=== PATIENT | male | born 1950 | race Caucasian/White ===

== ENCOUNTER → 2016-12-24 | Outpatient (CLI) | payer MEDICARE, OTHER | LOC: LABWHC1 10:00 | PROVIDERS: ATTEND Family Medicine | DX: Z53.9 Procedure and treatment not carried out, unspecified reason (principal) ==

== ENCOUNTER → 2017-01-12 | Outpatient (CLI) | payer MEDICARE, OTHER ==
--- NOTE | 2017-01-12 11:41 | US ---
EXAMINATION TYPE: US venous doppler duplex LE DATE OF EXAM: 01/12/2017 9:11 AM COMPARISON: NONE CLINICAL HISTORY: M79.604 Pain in R Leg. Ulcer bottom of right foot x 1 month LOWER EXTREMITY VENOUS INSUFFICIENCY SIDE PERFORMED: bilateral 1) Color flow is present and patency is documented in the following vessels. No DVT or SVT is noted . ? EIV ? Common Femoral Vein ? Deep Femoral Vein ? Femoral Vein ? Popliteal Vein ? Proximal Calf Veins ? Greater Saph Vein ? Upper Small Saph Vein 2) There is venous reflux noted at the following venous levels: bilateral greater saph. vein, right small saph. vein, left popliteal vein mid IMPRESSION: 1. Venous reflux within the greater saphenous veins bilaterally the right small saphenous vein and le ft popliteal vein.
--- NOTE | 2017-01-13 14:35 | P.ARTDOP ---
Arterial Doppler LOWER EXTREMITY ARTERIAL DOPPLER: DATE OF SERVICE: 01/12/2017 Reason for study: Leg pain. Doppler waveforms: Multiphasic bilaterally throughout. Pulse volume recording: Normal configuration. Pressure gradients: None. Ankle-brachial indices: Cannot be occluded. Toe pressures: 133 on the right, 131 on the left Impression: Normal study flow-belle. Inability to occlude ankle pressures may be related to calcific wall disease but not flow related..
== END | disposition home or self-care (01) ==
LOC: RADUSWWP 08:31
PROVIDERS: ATTEND Family Medicine
DX: I87.8 Other specified disorders of veins (principal); M79.604 Pain in right leg
CPT/HCPCS: 93923; 93970

== ENCOUNTER → 2017-01-12 | Outpatient (CLI) | payer MEDICARE, OTHER ==
--- NOTE | 2017-01-12 09:56 | MR ---
EXAMINATION TYPE: MR foot RT wo/w con DATE OF EXAM: 01/12/2017 8:27 AM COMPARISON: Right foot x-ray December 24, 2016. Prior MRI right foot August 25, 2011. HISTORY: assess osteomyelitis, history of diabetes with foot ulcer. CONTRAST: Standard multiplanar, multisequence MRI departmental protocol utilizing 20 mL intravenous MultiHance gadolinium contrast. FINDINGS: Exam is suboptimal secondary to patient's foot size being 2 large for dedicated foot coil. In addition exam is suboptimal due to patient motion. Exam is also suboptimal as dedicated level of u lcer or ulcers is not provided. There is moderate diffuse subcutaneous edema and soft tissue swelling identified most pronounced justus g the dorsal surface. Marked flexion in the toes makes evaluation at this level suboptimal. No obviou s soft tissue defect or ulceration is seen along the plantar surface. Bone marrow signal intensity is fairly well preserved without suspicious edema or enhancement clearly identified. Midfoot degenerative changes with joint space loss and subchondral cystic change and spurring is rede monstrated. Some destructive changes consistent with Charcot-type arthropathy involving the cuneiform s and midfoot bones is present. IMPRESSION: Suboptimal study without convincing evidence for acute osteomyelitis. If clinical concern persists fu rther investigation three-phase bone scan may be warranted due to quality of this study.
== END | disposition home or self-care (01) ==
LOC: RADMRIMAIN 06:32
PROVIDERS: ATTEND Family Medicine
DX: M86.8X8 Other osteomyelitis, other site (principal); E13.621 Other specified diabetes mellitus with foot ulcer
CPT/HCPCS: 82565; 84520; 73720; A9577; 93923; 93970

== ENCOUNTER → 2019-10-24 | Outpatient (CLI) | payer MEDICARE, OTHER ==
--- NOTE | 2019-10-24 10:46 | CT ---
EXAMINATION TYPE: CT brain wo con DATE OF EXAM: 10/24/2019 COMPARISON: None HISTORY: Fall CT DLP: 1120.[address] of the brain was performed. The ventricles, basal cisterns and sulci overlying the cerebral convexities demonstrate mild enlargem ent. There is no evidence for intracranial hemorrhage or sulcal effacement. There is decreased attenuation about the periventricular white matter and deep white matter of both c erebral hemispheres, compatible with chronic small vessel ischemia. Differential diagnosis does inclu de demyelination. No mass effects are seen.No midline shift. Osseous calvarium is intact. If symptoms persist consider MRI. IMPRESSION: 1. Age related atrophic and chronic small vessel ischemic change without acute intracranial process s een at this time.
== END | disposition home or self-care (01) ==
LOC: RADCTMAIN 10:21
PROVIDERS: ATTEND Family Medicine
DX: G31.1 Senile degeneration of brain, not elsewhere classified (principal); I67.82 Cerebral ischemia; Z88.5 Allergy status to narcotic agent
CPT/HCPCS: 70450

== ENCOUNTER → 2019-10-25 | Outpatient (CLI) | payer MEDICARE, OTHER ==
[2019-10-25 07:54] LABS: Basophils % (A) 0 %; Eosinophils # (A) 0.2 k/uL (0-0.7); Eosinophils % (A) 2 %; HCT 48.7 % (39.0-53.0); HGB 15.3 gm/dL (13.0-17.5); Lymphocytes # (A) 1.7 k/uL (1.0-4.8); Lymphocytes % (A) 20 %; MCH 29.2 pg (25.0-35.0); MCHC 31.5 g/dL (31.0-37.0); MCV 92.5 fL (80.0-100.0); Mean Platelet Volume 8.9; Monocytes # (A) 0.4 k/uL (0-1.0); Monocytes % (A) 5 %; Neutrophils # (A) 6.1 k/uL (1.3-7.7); Neutrophils % (A) 72 %; Platelet Count 145 k/uL (150-450); RBC 5.26 m/uL (4.30-5.90); RDW 13.7 % (11.5-15.5); WBC 8.5 k/uL (3.8-10.6)
[2019-10-25 12:09] LABS: African American GFR (CKD) 50.6 (60.0-200.0); Anion Gap 8.6 mmol/L (4.00-12.00); BUN/Creat Ratio 18.75 Ratio (12.00-20.00); Calcium 9.2 mg/dL (8.7-10.3); Carbon Dioxide 26.4 mmol/L (21.6-31.8); Chol/HDL Ratio 3.71; LDL Cholesterol,Calculated 77.8 mg/dL (0.0-131.0); Non-African American GFR(CKD) 43.6 (60.0-200.0); VLDL Calculation 25.2 mg/dL (5.00-40.00)
== END | disposition home or self-care (01) ==
LOC: LABWHC1 06:37
PROVIDERS: ATTEND Family Medicine
DX: Z12.5 Encounter for screening for malignant neoplasm of prostate (principal); E11.42 Type 2 diabetes mellitus with diabetic polyneuropathy; I10 Essential (primary) hypertension; R41.82 Altered mental status, unspecified; Z79.899 Other long term (current) drug therapy
CPT/HCPCS: 36415; 80048; 80061; 84153; 84450; 84460; 85025

== ENCOUNTER 2020-11-26 11:46 | Inpatient (IN) | payer MEDICARE, OTHER ==
[2020-11-26] MEDS ORDERED: ACETAMINOPHEN TAB 500 MG TAB PO STA (12:13)
[2020-11-26] MEDS ORDERED: SODIUM CHLORIDE 0.9% 1,000 ML IV STA (12:13)
[2020-11-26 12:43] LABS: Basophils % (A) 0 %; Eosinophils # (A) 0.2 k/uL (0-0.7); Eosinophils % (A) 1 %; HCT 48.6 % (39.0-53.0); HGB 16.4 gm/dL (13.0-17.5); Lymphocytes # (A) 0.8 k/uL (1.0-4.8); Lymphocytes % (A) 6 %; MCH 30.2 pg (25.0-35.0); MCHC 33.7 g/dL (31.0-37.0); MCV 89.5 fL (80.0-100.0); Mean Platelet Volume 9.1; Monocytes # (A) 0.4 k/uL (0-1.0); Monocytes % (A) 3 %; Neutrophils % (A) 90 %; Platelet Count 140 k/uL (150-450); RBC 5.43 m/uL (4.30-5.90); RDW 13.4 % (11.5-15.5); WBC 14.5 k/uL (3.8-10.6)
[2020-11-26 12:54] LABS: ALT 25 U/L (4-49); African American GFR (CKD) 49 (>60 ml/min/1.73 sqM); Albumin 4.2 g/dL (3.5-5.0); Anion Gap 11 mmol/L; Blood Urea Nitrogen 30 mg/dL (9-20); Calcium 9.4 mg/dL (8.4-10.2); Carbon Dioxide 22 mmol/L (22-30); Chloride 102 mmol/L (98-107); Glucose 133 mg/dL (74-99); Lipase 59 U/L (23-300); Non-African American GFR(CKD) 42 (>60 ml/min/1.73 sqM); Sodium 135 mmol/L (137-145); Total Protein 7.5 g/dL (6.3-8.2)
[2020-11-26 12:57] LABS: Appearance,Urine Clear (Clear); Bilirubin,Urine Negative (Negative); Blood,Urine Trace (Negative); Color,Urine Yellow; Glucose,Urine (UA) Negative (Negative); Ketones,Urine Negative (Negative); Leukocyte Esterase,Urine Negative (Negative); Nitrite,Urine Negative (Negative); PH, Urine 5.5 (5.0-8.0); Protein,Urine 1+ (Negative); RBC,Urine 1 /hpf (0-5); Specific Gravity,Urine 1.015 (1.001-1.035); Urobilinogen,Urine <2.0 mg/dL (<2.0); WBC,Urine 1 /hpf (0-5)
[2020-11-26 13:00] LABS: AST 33 U/L (17-59); Alkaline Phosphatase 122 U/L (38-126); Magnesium 1.6 mg/dL (1.6-2.3); Potassium 4.8 mmol/L (3.5-5.1)
--- NOTE | 2020-11-26 13:19 | XR ---
EXAMINATION TYPE: XR chest 2V DATE OF EXAM: 11/26/2020 COMPARISON: NONE HISTORY: Fever, hyperglycemia, Covid TECHNIQUE: Frontal and lateral views of the chest are obtained. FINDINGS: Exam shows low lung volume. Patchy basilar density is noted. No evident pneumothorax or pl eural effusion. Cardiac mediastinal silhouette within normal limits accounting for technique, there a re overlying leads. Thoracic spondylosis is present. IMPRESSION: Expiratory exam. Probable basilar atelectasis, difficult to exclude pneumonia. Follow-up suggested.
[2020-11-26] MEDS ORDERED: SODIUM CHLORIDE 0.9% 1,000 ML IV ONE (13:29)
--- NOTE | 2020-11-26 13:32 | ED ---
Fever HPI - General Chief Complaint: Fever Stated Complaint: High Blood sugar Time Seen by Provider: 11/26/20 11:56 Source: patient, RN notes reviewed, Caregiver Mode of arrival: wheelchair Limitations: physical limitation - History of Present Illness Initial Comments: this is a 70-year-old male presents emergency department with family chief complaint of fever, episode of vomiting, weakness. Patient reportedly was well yesterday but started having coughing fit, near vomiting episode with decreased oral intake this morning. Patient is a known diabetic. Patient did have mild hyperglycemia. Patient patient's blood sugar was 191 at home. Patient has been being treated for her diabetic foot ulcer which is well-healed over. No complaints. - Related Data Home Medications Medication Instructions Recorded Confirmed lisinopriL [Prinivil] 20 mg PO DAILY 03/08/14 11/26/20 Aspirin 81 mg PO DAILY 03/23/14 11/26/20 Insulin Glargine,Hum.rec.anlog 60 unit SQ W/SUPPER 03/23/14 11/26/20 [Lantus Solostar] Simvastatin [Zocor] 40 mg PO DAILY 11/26/20 11/26/20 Allergies Allergy/AdvReac Type Severity Reaction Status Date / Time codeine Allergy Unknown Swelling Verified 11/26/20 13:18 methylprednisolone sodium Allergy Unknown Swelling Verified 11/26/20 13:18 succinate [From Solu-Medrol] Review of Systems ROS Statement: Those systems with pertinent positive or pertinent negative responses have been documented in the HPI. ROS Other: All systems not noted in ROS Statement are negative. Past Medical History Past Medical History: Diabetes Mellitus, Hyperlipidemia, Hypertension, Skin Disorder Additional Past Medical History / Comment(s): wound right plantar foot History of Any Multi-Drug Resistant Organisms: None Reported Past Surgical History: Tonsillectomy Additional Past Surgical History / Comment(s): FOOT SURGERY-Bilateral Past Anesthesia/Blood Transfusion Reactions: No Reported Reaction Past Psychological History: No Psychological Hx Reported Smoking Status: Former smoker Past Alcohol Use History: Rare Past Drug Use History: None Reported - Past Family History Father Family Medical History: Cancer Additional Family Medical History / Comment(s): COLON CANCER Mother Family Medical History: Dementia, Diabetes Mellitus General Exam Limitations: physical limitation General appearance: alert, in no apparent distress Head exam: Present: atraumatic, normocephalic, normal inspection Eye exam: Present: normal appearance, PERRL, EOMI. Absent: scleral icterus, conjunctival injection, periorbital swelling ENT exam: Present: normal exam, normal oropharynx, mucous membranes moist, TM's normal bilaterally Neck exam: Present: normal inspection, full ROM. Absent: tenderness, meningismus, lymphadenopathy Respiratory exam: Present: rhonchi. Absent: normal lung sounds bilaterally, respiratory distress, wheezes, rales, stridor Cardiovascular Exam: Present: normal rhythm, tachycardia, normal heart sounds. Absent: systolic murmur, diastolic murmur, rubs, gallop, clicks GI/Abdominal exam: Present: soft, normal bowel sounds. Absent: distended, tenderness, guarding, rebound, rigid Extremities exam: Present: other (left foot plantar surface there is a well- healed) Neurological exam: Present: alert, oriented X3 ( wound. No erythema nontender) Skin exam: Present: warm, dry, intact, normal color. Absent: rash Course Vital Signs 11/26/20 11/26/20 11/26/20 11:47 12:42 13:16 Temperature 101 F H 100.8 F H Pulse Rate 137 H 133 H 124 H Pulse Rate [ Clinical Rehab Specialist ] Respiratory 20 20 20 Rate Blood Pressure 139/85 111/68 127/74 O2 Sat by Pulse 95 93 L 94 L Oximetry 11/26/20 13:19 Temperature Pulse Rate Pulse Rate [ 124 H Clinical Rehab Specialist ] Respiratory 20 Rate Blood Pressure O2 Sat by Pulse Oximetry Medical Decision Making - Medical Decision Making patient'sideal body weight is 78 kg. Patient does have evidence of pneumonia on x-ray. Patient is febrile, tachycardic. Patient will be admitted for IV antibi otics, fluid hydration and further monitoring treatment. - Lab Data Result diagrams: 11/26/20 12:17 11/26/20 12:17 Lab Results 11/26/20 11/26/20 11/26/20 Range/Units 12:17 12:17 12:17 WBC 14.5 H (3.8-10.6) k/uL RBC 5.43 (4.30-5.90) m/uL Hgb 16.4 (13.0-17.5) gm/dL Hct 48.6 (39.0-53.0) % MCV 89.5 (80.0-100.0) fL MCH 30.2 (25.0-35.0) pg MCHC 33.7 (31.0-37.0) g/dL RDW 13.4 (11.5-15.5) % Plt Count 140 L (150-450) k/uL MPV 9.1 Neutrophils % 90 % Lymphocytes % 6 % Monocytes % 3 % Eosinophils % 1 % Basophils % 0 % Neutrophils # 13.0 H (1.3-7.7) k/uL Lymphocytes # 0.8 L (1.0-4.8) k/uL Monocytes # 0.4 (0-1.0) k/uL Eosinophils # 0.2 (0-0.7) k/uL Basophils # 0.0 (0-0.2) k/uL Sodium 135 L (137-145) mmol/L Potassium 4.8 (3.5-5.1) mmol/L Chloride 102 (98-107) mmol/L Carbon Dioxide 22 (22-30) mmol/L Anion Gap 11 mmol/L BUN 30 H (9-20) mg/dL Creatinine 1.63 H (0.66-1.25) mg/dL Est GFR (CKD-EPI)AfAm 49 (>60 ml/min/1.73 sqM) Est GFR (CKD-EPI)NonAf 42 (>60 ml/min/1.73 sqM) Glucose 133 H (74-99) mg/dL Plasma Lactic Acid Prudencio 1.9 (0.7-2.0) mmol/L Calcium 9.4 (8.4-10.2) mg/dL Magnesium 1.6 (1.6-2.3) mg/dL Total Bilirubin 1.0 (0.2-1.3) mg/dL AST 33 (17-59) U/L ALT 25 (4-49) U/L Alkaline Phosphatase 122 (38-126) U/L Troponin I (0.000-0.034) ng/mL Total Protein 7.5 (6.3-8.2) g/dL Albumin 4.2 (3.5-5.0) g/dL Lipase 59 (23-300) U/L Urine Color Urine Appearance (Clear) Urine pH (5.0-8.0) Ur Specific Bland (1.001-1.035) Urine Protein (Negative) Urine Glucose (UA) (Negative) Urine Ketones (Negative) Urine Blood (Negative) Urine Nitrite (Negative) Urine Bilirubin (Negative) Urine Urobilinogen (<2.0) mg/dL Ur Leukocyte Esterase (Negative) Urine RBC (0-5) /hpf Urine WBC (0-5) /hpf Acetone, Qual Negative (Negative) Coronavirus (PCR) (Not Detectd) 11/26/20 11/26/20 11/26/20 Range/Units 12:17 12:17 12:17 WBC (3.8-10.6) k/uL RBC (4.30-5.90) m/uL Hgb (13.0-17.5) gm/dL Hct (39.0-53.0) % MCV (80.0-100.0) fL MCH (25.0-35.0) pg MCHC (31.0-37.0) g/dL RDW (11.5-15.5) % Plt Count (150-450) k/uL MPV Neutrophils % % Lymphocytes % % Monocytes % % Eosinophils % % Basophils % % Neutrophils # (1.3-7.7) k/uL Lymphocytes # (1.0-4.8) k/uL Monocytes # (0-1.0) k/uL Eosinophils # (0-0.7) k/uL Basophils # (0-0.2) k/uL Sodium (137-145) mmol/L Potassium (3.5-5.1) mmol/L Chloride (98-107) mmol/L Carbon Dioxide (22-30) mmol/L Anion Gap mmol/L BUN (9-20) mg/dL Creatinine (0.66-1.25) mg/dL Est GFR (CKD-EPI)AfAm (>60 ml/min/1.73 sqM) Est GFR (CKD-EPI)NonAf (>60 ml/min/1.73 sqM) Glucose (74-99) mg/dL Plasma Lactic Acid Prudencio (0.7-2.0) mmol/L Calcium (8.4-10.2) mg/dL Magnesium (1.6-2.3) mg/dL Total Bilirubin (0.2-1.3) mg/dL AST (17-59) U/L ALT (4-49) U/L Alkaline Phosphatase (38-126) U/L Troponin I <0.012 (0.000-0.034) ng/mL Total Protein (6.3-8.2) g/dL Albumin (3.5-5.0) g/dL Lipase (23-300) U/L Urine Color Yellow Urine Appearance Clear (Clear) Urine pH 5.5 (5.0-8.0) Ur Specific Bland 1.015 (1.001-1.035) Urine Protein 1+ H (Negative) Urine Glucose (UA) Negative (Negative) Urine Ketones Negative (Negative) Urine Blood Trace H (Negative) Urine Nitrite Negative (Negative) Urine Bilirubin Negative (Negative) Urine Urobilinogen <2.0 (<2.0) mg/dL Ur Leukocyte Esterase Negative (Negative) Urine RBC 1 (0-5) /hpf Urine WBC 1 (0-5) /hpf Acetone, Qual (Negative) Coronavirus (PCR) Not Detected (Not Detectd) - EKG Data -: EKG Interpreted by Ks EKG Comments: EKG performed at 12:14 sinus tachycardia rate of 134 UT 200 QRS 118 QT/QTc to 88/4:30 Disposition Clinical Impression: Pneumonia, Fever, Tachycardia Disposition: ADMITTED IP TO THIS HOSP Condition: Fair Referrals: Josef Hawkins Jr, [Primary Care Provider] - 1-2 days
[2020-11-26] MEDS ORDERED: AZITHROMYCIN 500 MG in SODIUM CHLORIDE 0.9% 250 ML IVPB STA (13:44)
[2020-11-26] MEDS ORDERED: ACETAMINOPHEN TAB 325 MG TAB PO PRN (13:45)
[2020-11-26] MEDS ORDERED: ONDANSETRON 4 MG/2 ML VIAL IVP PRN (13:45)
[2020-11-26] MEDS ORDERED: NALOXONE 0.4 MG/ML 1 ML VIAL IV PRN (13:45)
[2020-11-26] MEDS: SODIUM CHLORIDE 0.9% 1,000 ML IV SCH ×2 (13:54→21:52)
[2020-11-26 21:26] LABS: Glucose,Whole Blood 161 mg/dL (75-99)
[2020-11-26] MEDS: INSULIN ASPART (NovoLOG) 100 UNIT/ML VIAL SQ SCH (21:51)
[2020-11-27] MEDS: SODIUM CHLORIDE 0.9% 1,000 ML IV SCH ×3 (01:27→21:34)
[2020-11-27 07:14] LABS: Glucose,Whole Blood 181 mg/dL (75-99)
[2020-11-27] MEDS: INSULIN ASPART (NovoLOG) 100 UNIT/ML VIAL SQ SCH ×4 (07:44→22:17)
[2020-11-27 11:23] LABS: Glucose,Whole Blood 195 mg/dL (75-99)
--- NOTE | 2020-11-27 13:16 | P.HPIM ---
History of Present Illness H&P Date: 11/27/20 Chief Complaint: Fever, high blood sugars This is 70-year-old gentleman with past medical history of diabetes mellitus II, neuropathy , bilateral foot/toe debridements,Charcot feet,hyperlipidemia, hypertension, former nicotine dependence, presented to the ER with complaints of nausea, vomiting, generalized weakness, fevers and high blood sugars-reports Accu-Chek at home of 191. Denies abdominal pain. Recently treated for diabetic foot ulcer-healed. Denies chest pain, palpitations or shortness of breath. Chest x-ray reported patchy basilar density ,probable basilar atelectasis, difficult to exclude pneumonia. Patient currently denies cough nausea or vomiting currently with no abdominal pain. On admission and T-max, temperature 101, respiratory rate in the 20s, blood pressure stable, maintaining O2 sats in the 90s on room air. Blood sugar 133 on admission. Creatinine 1.63 at baseline. BUN 30. Negative acetone.EKG reporting sinus tachycardia with right bundle branch block, heart rate 120s 130s. Received IV fluid hydration with IV antibiotics of azithromycin and Rocephin initiated in the ER. Patient is vague historian, majority of information obtained from staff and chart. Review of Systems ROS Statement: Those systems with pertinent positive or pertinent negative responses have been documented in the HPI. ROS Other: All systems not noted in ROS Statement are negative. Past Medical History Past Medical History: Diabetes Mellitus, Hyperlipidemia, Hypertension, Skin Disorder Additional Past Medical History / Comment(s): IDDM type II, neuropathy bilateral hands/feet, bilateral charcot feet/past bilateral foot/toe wounds History of Any Multi-Drug Resistant Organisms: None Reported Past Surgical History: Tonsillectomy Additional Past Surgical History / Comment(s): PICC line, bilateral foot/toe debridements Past Anesthesia/Blood Transfusion Reactions: No Reported Reaction Smoking Status: Former smoker - Past Family History Father Family Medical History: Cancer Additional Family Medical History / Comment(s): COLON CANCER Mother Family Medical History: Dementia, Diabetes Mellitus Medications and Allergies Home Medications Medication Instructions Recorded Confirmed Type lisinopriL [Prinivil] 20 mg PO DAILY 03/08/14 11/26/20 History Aspirin 81 mg PO DAILY 03/23/14 11/26/20 History Insulin Glargine,Hum.rec.anlog 60 unit SQ W/SUPPER 03/23/14 11/26/20 History [Lantus Solostar] Simvastatin [Zocor] 40 mg PO DAILY 11/26/20 11/26/20 History Allergies Allergy/AdvReac Type Severity Reaction Status Date / Time codeine Allergy Unknown Swelling Verified 11/26/20 13:18 methylprednisolone sodium Allergy Unknown Swelling Verified 11/26/20 13:18 succinate [From Solu-Medrol] Physical Exam Vitals: Vital Signs Temp Pulse Pulse Pulse Resp BP BP 11/27/20 02:40 98.8 F 99 20 149/68 11/26/20 20:45 99.4 F 117 H 20 134/81 11/26/20 19:20 19 11/26/20 16:03 100.1 F H 121 H 19 114/73 11/26/20 15:33 100.1 F H 134 H 18 149/90 11/26/20 14:33 134 H 18 149/90 11/26/20 13:57 100.1 F H 125 H 20 141/85 11/26/20 13:19 124 H 20 11/26/20 13:16 100.8 F H 124 H 20 127/74 11/26/20 12:42 133 H 20 111/68 11/26/20 11:47 101 F H 137 H 20 139/85 Pulse Ox 11/27/20 02:40 93 L 11/26/20 20:45 94 L 11/26/20 19:20 11/26/20 16:03 93 L 11/26/20 15:33 94 L 11/26/20 14:33 94 L 11/26/20 13:57 94 L 11/26/20 13:19 11/26/20 13:16 94 L 11/26/20 12:42 93 L 11/26/20 11:47 95 Intake and Output 11/26/20 11/27/20 11/27/20 22:59 06:59 14:59 Intake Total 200 Balance 200 Intake: Oral 200 Other: Voiding Method Urinal # Voids 0 3 Weight 136.078 kg PHYSICAL EXAM: VITAL SIGNS: As above GENERAL: Sitting up in bed, no acute distress, calm, pleasant HEENT: Conjunctivae normal. eyes normal. NECK: No JVD. No thyroid enlargement. No LNs CARDIOVASCULAR: S1, S2 regular.. No murmur RESPIRATION: Breath sounds diminished in the bases. No rhonchi, minimal coarse bibasilar crackles. ABDOMEN: Soft, nontender . No guarding. no masses palpable. No ascites, No hepatosplenomegaly.Bowel sounds heard. LEGS: Right lower extremity bigger than left, nontender, warm, positive pulses. bilateral Charcot feet,Left foot plantar surface well healed, PSYCHIATRY: Alert and oriented X2-3, mood and affect normal. NERVOUS SYSTEM: Cranial N 2-12 grossly normal. Moves all 4 limbs. Diffuse weakness No focal deficits. Strength and sensation grossly intact.. Skin: Warm and dry, no rash Lymphatic system. No LN neck axilla. Results CBC & Chem 7: 11/26/20 12:17 11/26/20 12:17 Labs: Abnormal Lab Results - Last 24 Hours (Table) 11/26/20 11/26/20 11/26/20 Range/Units 12:17 12:17 12:17 WBC 14.5 H (3.8-10.6) k/uL Plt Count 140 L (150-450) k/uL Neutrophils # 13.0 H (1.3-7.7) k/uL Lymphocytes # 0.8 L (1.0-4.8) k/uL Sodium 135 L (137-145) mmol/L BUN 30 H (9-20) mg/dL Creatinine 1.63 H (0.66-1.25) mg/dL Glucose 133 H (74-99) mg/dL POC Glucose (mg/dL) (75-99) mg/dL Urine Protein 1+ H (Negative) Urine Blood Trace H (Negative) 11/26/20 11/27/20 Range/Units 21:09 07:13 WBC (3.8-10.6) k/uL Plt Count (150-450) k/uL Neutrophils # (1.3-7.7) k/uL Lymphocytes # (1.0-4.8) k/uL Sodium (137-145) mmol/L BUN (9-20) mg/dL Creatinine (0.66-1.25) mg/dL Glucose (74-99) mg/dL POC Glucose (mg/dL) 161 H 181 H (75-99) mg/dL Urine Protein (Negative) Urine Blood (Negative) Thrombosis Risk Factor Assmnt - Choose All That Apply Any of the Below Risk Factors Present?: Yes Each Factor Represents 1 point: Obesity (BMI >25), Serious lung disease incl. pneumonia (< 1month) Other Risk Factors: Yes Each Risk Factor Represents 2 Points: Age 61-74 years Other congenital or acquired thrombophilia - If yes, enter type in comment: No Thrombosis Risk Factor Assessment Total Risk Factor Score: 4 Thrombosis Risk Factor Assessment Level: Moderate Risk Assessment and Plan Assessment: Fevers, possible community-acquired bilateral Pneumonia Bibasilar atelectasis Rule out influenza Sinus tachycardia, right bundle-branch block Diabetes mellitus type 2, hyperglycemi Neuropathy Charcot feet History of previous bilateral foot, toe debridement Hypertension Hyperlipidemia Former nicotine dependence Morbid obesity, BMI 41.8 Plan: Continue on current medication regime ,monitoring and systemic treatment. Blood cultures pending. Maintain IV fluid hydration, antibiotics. Doppler ultrasound of right leg, rule out DVT. Discharge planning in progress for kareem orrow if patient is afebrile 24 hours. Influenza screen ordered. The impression and plan of care has been dictated as directed. : I performed a history and examination of this patient, discussed the same with the dictator. I agree with the dictator's note ,documented as a scribe. Any a dditional findings or plans will be noted.
--- NOTE | 2020-11-27 14:46 | US ---
EXAMINATION TYPE: US venous doppler duplex LE RT DATE OF EXAM: 11/27/2020 2:36 PM COMPARISON: NONE CLINICAL HISTORY: R/O DVT. Right leg swelling Exam done portable. SIDE PERFORMED: Right TECHNIQUE: The lower extremity deep venous system is examined utilizing real time linear array sonog winsome with graded compression, doppler sonography and color-flow sonography. VESSELS IMAGED: Common Femoral Vein Deep Femoral Vein Greater Saphenous Vein * Femoral Vein Popliteal Vein Small Saphenous Vein * Proximal Calf Veins (* superficial vessels) There is normal flow, compressibility, vascular waveforms Right Leg: Appears negative for DVT IMPRESSION: No evident deep venous thrombosis at or above the right knee
[2020-11-27 16:34] LABS: Glucose,Whole Blood 271 mg/dL (75-99)
[2020-11-27 19:24] LABS: Hemoglobin A1C 8.5 % (4.0-6.0)
[2020-11-27 22:12] LABS: Glucose,Whole Blood 165 mg/dL (75-99)
[2020-11-28] MEDS: SODIUM CHLORIDE 0.9% 1,000 ML IV SCH ×3 (04:19→12:42)
[2020-11-28 07:20] LABS: Glucose,Whole Blood 148 mg/dL (75-99)
[2020-11-28] MEDS: INSULIN ASPART (NovoLOG) 100 UNIT/ML VIAL SQ SCH ×4 (07:32→20:27)
[2020-11-28] MEDS ORDERED: PANTOPRAZOLE 40 MG/10 ML VIAL IVP SCH (10:15)
[2020-11-28] MEDS ORDERED: AZITHROMYCIN 500 MG in SODIUM CHLORIDE 0.9% 250 ML IVPB SCH (10:15)
[2020-11-28 11:01] LABS: Basophils # (A) 0.01 X 10*3/uL (0.00-0.10); Basophils % (A) 0.1 %; Eosinophils # (A) 0.16 X 10*3/uL (0.04-0.35); Eosinophils % (A) 2.3 %; HCT 40.2 % (39.6-50.0); HGB 13.1 g/dL (13.0-17.0); Lymphocytes # (A) 0.91 X 10*3/uL (0.90-5.00); Lymphocytes % (A) 12.8 %; MCH 29.8 pg (27.0-32.0); MCHC 32.6 g/dL (32.0-37.0); MCV 91.6 fL (80.0-97.0); Mean Platelet Volume 12.3 fL (9.5-12.2); Monocytes # (A) 0.44 X 10*3/uL (0.20-1.00); Monocytes % (A) 6.2 %; Neutrophils # (A) 5.56 X 10*3/uL (1.80-7.70); Neutrophils % (A) 78.2 %; Platelet Count 115 X 10*3/uL (140-440); RBC 4.39 X 10*6/uL (4.40-5.60); RDW 13.3 % (11.5-14.5); WBC 7.11 X 10*3/uL (4.50-10.00)
--- NOTE | 2020-11-28 11:39 | XR ---
EXAMINATION TYPE: XR chest 2V DATE OF EXAM: 11/28/2020 COMPARISON: Chest x-ray 11/26/2020 HISTORY: Follow-up, abnormal chest x-ray TECHNIQUE: Frontal and lateral views of the chest are obtained. FINDINGS: Exam is expiratory and rotated. Pleural parenchymal changes are similar to prior exam. Car diac mediastinal silhouette is not changed. IMPRESSION: Stable findings. There may be underlying atelectasis versus pneumonia, expiratory rotate d exam, recommend follow-up PA and lateral chest x-ray for better evaluation when stable.
[2020-11-28 12:02] LABS: Glucose,Whole Blood 177 mg/dL (75-99)
[2020-11-28 12:18] LABS: African American GFR (CKD) 50.2 (60.0-200.0); Anion Gap 6.5 mmol/L (4.00-12.00); BUN/Creat Ratio 18.13 Ratio (12.00-20.00); Calcium 8.1 mg/dL (8.7-10.3); Carbon Dioxide 23.5 mmol/L (21.6-31.8); Non-African American GFR(CKD) 43.3 (60.0-200.0); Potassium 4.3 mmol/L (3.5-5.5)
--- NOTE | 2020-11-28 12:31 | P.PN ---
Subjective Progress Note Date: 11/28/20 This is 70-year-old gentleman with past medical history of diabetes mellitus II, neuropathy , bilateral foot/toe debridements,Charcot feet,hyperlipidemia, hypertension, former nicotine dependence, presented to the ER with complaints of nausea, vomiting, generalized weakness, fevers and high blood sugars-reports Accu-Chek at home of 191. Denies abdominal pain. Recently treated for diabetic foot ulcer-healed. Denies chest pain, palpitations or shortness of breath. Chest x-ray reported patchy basilar density ,probable basilar atelectasis, difficult to exclude pneumonia. Patient currently denies cough nausea or vomiting currently with no abdominal pain. On admission and T-max, temperature 101, respiratory rate in the 20s, blood pressure stable, maintaining O2 sats in the 90s on room air. Blood sugar 133 on admission. Creatinine 1.63 at baseline. BUN 30. Negative acetone.EKG reporting sinus tachycardia with right bundle branch block, heart rate 120s 130s. Received IV fluid hydration with IV antibiotics of azithromycin and Rocephin initiated in the ER. Patient is vague historian, majority of information obtained from staff and chart. 11/28/2020 T-max 100.5. Preliminary blood cultures reporting no growth at 24 hours. Maintain Zithromax, Rocephin. Follow-up chest x-ray pending. Doppler ultrasound negative for DVT. Influenza A and B not detected. Minimal cough, nonproductive. Maintaining O2 sats in the 90s on room air. Denies chest pain, palpitations or shortness of breath. Objective - Vital Signs Vital signs: Vital Signs Temp 99.2 F 11/28/20 00:58 Pulse 83 11/28/20 00:58 Resp 19 11/28/20 00:58 BP 107/66 11/28/20 00:58 Pulse Ox 93 L 11/28/20 00:58 Intake & Output 11/27/20 11/28/20 11/28/20 18:59 06:59 18:59 Output Total 300 Balance -300 Output: Urine 300 Other: Voiding Method Urinal Urinal Diaper Diaper # Voids 2 - Exam PHYSICAL EXAM: VITAL SIGNS: As above GENERAL: Sitting up in bed, no acute distress HEENT: Conjunctivae normal. eyes normal. NECK: No JVD. No thyroid enlargement. CARDIOVASCULAR: S1, S2 regular. No murmur RESPIRATION: Breath sounds diminished in the bases. No rhonchi, minimal coarse bibasilar crackles. ABDOMEN: Soft, nontender . No guarding. no masses palpable. Positive bowel sounds. LEGS: Right lower extremity bigger than left-Doppler reported negative for DVT, nontender, warm, positive pulses. bilateral Charcot feet,Left foot plantar surface well healed, PSYCHIATRY: Alert and oriented X2-3, mood and affect normal. NERVOUS SYSTEM: Cranial N 2-12 grossly normal. Moves all 4 limbs.No focal deficits. Strength and sensation grossly intact.. Skin: Warm and dry, no rash - Labs CBC & Chem 7: 11/28/20 06:49 11/28/20 06:49 Labs: Abnormal Lab Results - Last 24 Hours (Table) 11/27/20 11/27/20 11/27/20 Range/Units 09:32 11:22 16:33 POC Glucose (mg/dL) 195 H 271 H (75-99) mg/dL Hemoglobin A1c 8.5 H (4.0-6.0) % 11/27/20 11/28/20 Range/Units 22:11 07:19 POC Glucose (mg/dL) 165 H 148 H (75-99) mg/dL Hemoglobin A1c (4.0-6.0) % Microbiology - Last 24 Hours (Table) 11/26/20 12:17 Blood Culture - Preliminary Blood No Growth after 24 hours 11/26/20 12:17 Blood Culture - Preliminary Blood No Growth after 24 hours Assessment and Plan Assessment: Fevers, possible community-acquired bilateral Pneumonia Bibasilar atelectasis Rule out influenza Sinus tachycardia, right bundle-branch block Diabetes mellitus type 2, hyperglycemi Neuropathy Charcot feet History of previous bilateral foot, toe debridement Hypertension Hyperlipidemia Former nicotine dependence Morbid obesity, BMI 41.8 Plan: Continue on current medication regime ,monitoring and systemic treatment. Maintain IV antibiotics of Rocephin, Zithromax. IV fluids decreased, good diet intake. Blood cultures finalizing. Chest x-ray pending. Discharge planning in progress for tomorrow if patient is afebrile 24 hours. The impression and plan of care has been dictated as directed. : I performed a history and examination of this patient, discussed the same with the dictator. I agree with the dictator's note ,documented as a scribe. Any additional findings or plans will be noted.
[2020-11-28 16:56] LABS: Glucose,Whole Blood 202 mg/dL (75-99)
[2020-11-28 20:28] LABS: Glucose,Whole Blood 166 mg/dL (75-99)
[2020-11-29 06:59] LABS: African American GFR (CKD) 52 (>60 ml/min/1.73 sqM); Anion Gap 3 mmol/L; Blood Urea Nitrogen 27 mg/dL (9-20); Calcium 8.1 mg/dL (8.4-10.2); Carbon Dioxide 26 mmol/L (22-30); Chloride 105 mmol/L (98-107); Glucose 198 mg/dL (74-99); Non-African American GFR(CKD) 45 (>60 ml/min/1.73 sqM); Potassium 4.2 mmol/L (3.5-5.1); Sodium 134 mmol/L (137-145)
[2020-11-29 07:06] LABS: Glucose,Whole Blood 190 mg/dL (75-99)
[2020-11-29] MEDS ORDERED: PANTOPRAZOLE 40 MG TABLET PO SCH (07:30)
[2020-11-29] MEDS: INSULIN ASPART (NovoLOG) 100 UNIT/ML VIAL SQ SCH ×2 (07:49→13:11)
[2020-11-29] MEDS: SODIUM CHLORIDE 0.9% 1,000 ML IV SCH (07:50)
[2020-11-29 08:12] VITALS: PULSE 75
[2020-11-29 08:54] LABS: Basophils # (A) 0.01 X 10*3/uL (0.00-0.10); Basophils % (A) 0.2 %; Eosinophils # (A) 0.36 X 10*3/uL (0.04-0.35); Eosinophils % (A) 6.3 %; HCT 39.6 % (39.6-50.0); HGB 12.7 g/dL (13.0-17.0); Lymphocytes # (A) 1.09 X 10*3/uL (0.90-5.00); Lymphocytes % (A) 19.2 %; MCHC 32.1 g/dL (32.0-37.0); MCV 90.4 fL (80.0-97.0); Mean Platelet Volume 12.4 fL (9.5-12.2); Monocytes # (A) 0.56 X 10*3/uL (0.20-1.00); Monocytes % (A) 9.9 %; Neutrophils # (A) 3.63 X 10*3/uL (1.80-7.70); Platelet Count 120 X 10*3/uL (140-440); RBC 4.38 X 10*6/uL (4.40-5.60); RDW 13.2 % (11.5-14.5); WBC 5.67 X 10*3/uL (4.50-10.00)
[2020-11-29] MEDS ORDERED: lisinopriL 20 MG TAB PO SCH (09:00)
[2020-11-29] MEDS ORDERED: ASPIRIN 81 MG PO SCH (09:00)
[2020-11-29] MEDS ORDERED: AZITHROMYCIN 500 MG TAB PO SCH (09:00)
[2020-11-29] MEDS ORDERED: ATORVASTATIN 20 MG TAB PO SCH (09:00)
[2020-11-29 11:26] LABS: Glucose,Whole Blood 245 mg/dL (75-99)
--- NOTE | 2020-11-29 11:51 | P.DS ---
Providers Date of admission: 11/26/20 13:45 Expected date of discharge: 11/29/20 Attending physician: Yariel Hardin Primary care physician: [facility] Course: Final Diagnoses: Fevers, possible community-acquired bilateral Pneumonia Bibasilar atelectasis Ruled out influenza Sinus tachycardia, right bundle-branch block Diabetes mellitus type 2, hyperglycemia Chronic kidney disease, stage III Neuropathy Charcot feet History of previous bilateral foot, toe debridement Hypertension Hyperlipidemia Former nicotine dependence Morbid obesity, BMI 41.8 Hospital course:This is 70-year-old gentleman with past medical history of diabetes mellitus II, neuropathy , bilateral foot/toe debridements,Charcot feet,hyperlipidemia, hypertension, former nicotine dependence, presented to the ER with complaints of nausea, vomiting, generalized weakness, fevers and high blood sugars-reports Accu-Chek at home of 191. Denies abdominal pain. Recently treated for diabetic foot ulcer-healed. Denies chest pain, palpitations or shortness of breath. Chest x-ray reported patchy basilar density ,probable basilar atelectasis, difficult to exclude pneumonia. Patient currently denies cough nausea or vomiting currently with no abdominal pain. On admission and T- max, temperature 101, respiratory rate in the 20s, blood pressure stable, maintaining O2 sats in the 90s on room air. Blood sugar 133 on admission. Creatinine 1.63 at baseline. BUN 30. Negative acetone.EKG reporting sinus tachycardia with right bundle branch block, heart rate 120s 130s. Received IV fluid hydration with IV antibiotics of azithromycin and Rocephin initiated in the ER. Patient is vague historian, majority of information obtained from staff and chart. 11/28/2020 T-max 100.5. Preliminary blood cultures reporting no growth at 24 hours. Maintain Zithromax, Rocephin. Follow-up chest x-ray pending. Doppler ultrasound negative for DVT. Influenza A and B not detected. Minimal cough, nonproductive. Maintaining O2 sats in the 90s on room air. Denies chest pain, palpitations or shortness of breath. Significant clinical improvement. Patient will be discharged home today in a stable condition with guarded prognosis. The impression and plan of care has been dictated as directed. : I performed a history and examination of this patient, discussed the same with the dictator. I agree with the dictator's note ,documented as a scribe. Any additional findings or plans will be noted. Patient Condition at Discharge: Stable Plan - Discharge Summary Discharge Rx Participant: No New Discharge Prescriptions: New Cefuroxime Axetil [Ceftin] 500 mg PO BID 3 Days #6 tab Pantoprazole [Protonix] 40 mg PO AC-BRKFST #30 tablet.dr Landeros lisinopriL [Prinivil] 20 mg PO DAILY Insulin Glargine,Hum.rec.anlog [Lantus Solostar] 60 unit SQ W/SUPPER Aspirin 81 mg PO DAILY Simvastatin [Zocor] 40 mg PO DAILY Discharge Medication List lisinopriL [Prinivil] 20 mg PO DAILY 03/08/14 [History] Aspirin 81 mg PO DAILY 03/23/14 [History] Insulin Glargine,Hum.rec.anlog [Lantus Solostar] 60 unit SQ W/SUPPER 03/23/14 [History] Simvastatin [Zocor] 40 mg PO DAILY 11/26/20 [History] Cefuroxime Axetil [Ceftin] 500 mg PO BID 3 Days #6 tab 11/29/20 [Rx] Pantoprazole [Protonix] 40 mg PO AC-BRKFST #30 tablet. 11/29/20 [Rx] Follow up Appointment(s)/Referral(s): Josef Hawkins Jr, DO [Primary Care Provider] - 3 Days Ambulatory/Diagnostic Orders: Complete Blood Count w/diff [LAB.AMB] Time Frame: 3 Days, Location: None Selected
[2020-11-29 13:41] VITALS: BP 149/80; RESP 18; TEMP 97.9
[2020-11-29 16:29] LABS: Glucose,Whole Blood 202 mg/dL (75-99)
[2020-11-29] MEDS ORDERED: INSULIN DETEMIR (LEVEMIR) 100 UNIT/ML SYR SQ SCH (17:30)
== END 2020-11-29 16:59 | disposition home or self-care (01) | DRG 194 ==
LOC: EC 11:46 → 4SSUR 13:45
PROVIDERS: ADMIT Family Medicine; ATTEND Family Medicine
DX: J18.9 Pneumonia, unspecified organism (principal); A52.16 Charcot's arthropathy (tabetic); J98.11 Atelectasis; Z68.41 Body mass index [BMI] 40.0-44.9, adult; E66.01 Morbid (severe) obesity due to excess calories; E11.22 Type 2 diabetes mellitus with diabetic chronic kidney disease; E11.610 Type 2 diabetes mellitus with diabetic neuropathic arthropathy; E11.65 Type 2 diabetes mellitus with hyperglycemia; E78.5 Hyperlipidemia, unspecified; I12.9 Hypertensive chronic kidney disease with stage 1 through stage 4 chronic kidney disease, or unspecified chronic kidney disease; I45.10 Unspecified right bundle-branch block; N18.30 Chronic kidney disease, stage 3 unspecified; Z79.4 Long term (current) use of insulin; Z79.82 Long term (current) use of aspirin; Z20.822 Contact with and (suspected) exposure to COVID-19; Z79.899 Other long term (current) drug therapy; Z80.0 Family history of malignant neoplasm of digestive organs; Z83.3 Family history of diabetes mellitus; Z87.891 Personal history of nicotine dependence; Z90.89 Acquired absence of other organs; Z82.0 Family history of epilepsy and other diseases of the nervous system; Z88.5 Allergy status to narcotic agent
CPT/HCPCS: 36415; 71046; 80048; 80053; 81001; 82009; 83036; 83605; 83690; 83735; 84484; 85025; 87040; 87502; 87635; 93005; 96361; 96365; 96368; 99285

== ENCOUNTER 2020-12-17 10:34 | Inpatient (IN) | payer MEDICARE, OTHER ==
[2020-12-17] MEDS ORDERED: NALOXONE 0.4 MG/ML 1 ML VIAL IV PRN (10:56)
[2020-12-17] MEDS ORDERED: ONDANSETRON 4 MG/2 ML VIAL IVP PRN (10:56)
[2020-12-17] MEDS ORDERED: ACETAMINOPHEN TAB 325 MG TAB PO PRN (10:56)
[2020-12-17] MEDS ORDERED: PIPERACILLIN-TAZOBACTAM 3.375 GM in SODIUM CHLORIDE 0.9% 100 ML IVPB STA (10:56)
[2020-12-17] MEDS ORDERED: LORazepam 2 MG/ML INJ IV PRN (10:56)
--- NOTE | 2020-12-17 11:00 | ED ---
General Adult HPI - General Chief complaint: Wound/Laceration Stated complaint: Wounds on right foot Time Seen by Provider: 12/17/20 10:48 Source: patient Mode of arrival: wheelchair Limitations: no limitations - History of Present Illness Initial comments: 70-year-old male with history of diabetes, peripheral neuropathy, diabetic ulcers presents to the emergency department with a chief complaint of diabetic ulcer. Patient is brought here by his niece who states the patient had developed a diabetic ulcer on his first second and third right toes. States his foot is also swollen and slightly erythematous. Stateside a primary care physician who advised them to come to the emergency department for treatment and admission. The niece states that the patient also developed increased foul odor from the wound itself. Patient is insulin dependent diabetic. She denies any fevers at home. - Related Data Home Medications Medication Instructions Recorded Confirmed lisinopriL [Prinivil] 20 mg PO DAILY 03/08/14 12/17/20 Aspirin 81 mg PO DAILY 03/23/14 12/17/20 Insulin Glargine,Hum.rec.anlog 60 unit SQ W/SUPPER 03/23/14 12/17/20 [Lantus Solostar] Simvastatin [Zocor] 40 mg PO DAILY 11/26/20 12/17/20 Previous Rx's Medication Instructions Recorded Pantoprazole [Protonix] 40 mg PO AC-BRKFST #30 tablet. 11/29/20 Allergies Allergy/AdvReac Type Severity Reaction Status Date / Time codeine Allergy Unknown Swelling Verified 12/17/20 11:10 methylprednisolone sodium Allergy Unknown Swelling Verified 12/17/20 11:10 succinate [From Solu-Medrol] Review of Systems ROS Statement: Those systems with pertinent positive or pertinent negative responses have been documented in the HPI. ROS Other: All systems not noted in ROS Statement are negative. Past Medical History Past Medical History: Diabetes Mellitus, Hyperlipidemia, Hypertension, Skin Disorder Additional Past Medical History / Comment(s): IDDM type II, neuropathy bilateral hands/feet, bilateral charcot feet/past bilateral foot/toe wounds History of Any Multi-Drug Resistant Organisms: None Reported Past Surgical History: Tonsillectomy Additional Past Surgical History / Comment(s): PICC line, bilateral foot/toe debridements Past Anesthesia/Blood Transfusion Reactions: No Reported Reaction Past Psychological History: No Psychological Hx Reported Smoking Status: Former smoker - Past Family History Father Family Medical History: Cancer Additional Family Medical History / Comment(s): COLON CANCER Mother Family Medical History: Dementia, Diabetes Mellitus General Exam Limitations: no limitations General appearance: alert, in no apparent distress, obese Head exam: Present: atraumatic, normocephalic, normal inspection Eye exam: Present: normal appearance, PERRL, EOMI Pupils: Present: normal accommodation ENT exam: Present: normal exam, normal oropharynx, mucous membranes moist Neck exam: Present: normal inspection, full ROM. Absent: tenderness Respiratory exam: Present: normal lung sounds bilaterally. Absent: respiratory distress Cardiovascular Exam: Present: regular rate, normal rhythm, normal heart sounds Extremities exam: Present: full ROM, normal capillary refill, other (Palpable DP and PT). Absent: normal inspection (Swollen and slightly erythematous distal right foot. Diabetic ulcer noted on the first second and third. Epidermal layer of the big toe seems to be peeled back.), tenderness (No tenderness at the affected site), pedal edema, joint swelling, calf tenderness Back exam: Present: normal inspection, full ROM. Absent: tenderness, CVA tenderness (R), CVA tenderness (L) Neurological exam: Present: alert Psychiatric exam: Present: normal affect, normal mood Skin exam: Present: warm, dry, intact, normal color Course Vital Signs 12/17/20 10:39 Temperature 98.7 F Pulse Rate 82 Respiratory 16 Rate Blood Pressure 133/84 O2 Sat by Pulse 98 Oximetry Medical Decision Making - Medical Decision Making 70-year-old male with history of diabetes, diabetic ulcer, peripheral neuropathy presents emergency Department with a chief complaint diabetic ulcer. Dr. Hawkins spoke with Dr. Amezcua and advised admission for further medical management. They also recommended coverage for Pseudomonas. CBC unremarkable. Lactic acid within normal limits. CMP reveals a glucose of 200. Elevated BUNs 22, however this appears to have improved compared to most recent laboratory work. Slight increase a creatinine of 1.64. Blood cultures pending. Patient will be started on Zosyn. X-ray reveals findings that suggest a Charcot joint. Chronic osteo myelitis. No new destructive changes. NovoLog sliding scale. Patient will be admitted for further medical management. Case discussed with Dr. Amezcua. Admitting physician is Dr. Hawkins. Infectious disease and consult. - Lab Data Result diagrams: 12/17/20 11:45 12/17/20 11:45 Disposition Clinical Impression: Diabetic ulcer of right great toe Disposition: ADMITTED IP TO THIS HOSP Condition: Fair Is patient prescribed a controlled substance at d/c from ED?: No Time of Disposition: 11:06
--- NOTE | 2020-12-17 11:39 | XR ---
EXAMINATION TYPE: XR foot complete RT DATE OF EXAM: 12/17/2020 COMPARISON: NONE HISTORY: Pain diabetic foot ulcer TECHNIQUE: Three views are submitted. FINDINGS: There is fragmentation and subluxation of the tarsal bones with heterotopic ossification. The cranial spurs and vascular calcifications noted. Widening of the first tarsometatarsal joint space noted. Li sfranc injury on a chronic basis is suspected. Previous fracture involving the base of the first meta tarsal also suspected. Pes planus deformity noted. Correlate for Charcot joint. Arthropathy of the first MTP joint. There is deformity and lucency involving the most medial cuneiform bone. This has sclerotic margins. Chronic deformities involving the tarsometatarsal junction and basilar multiple metatarsals also noted. Diffu se soft tissue edema. Vascular calcifications. IMPRESSION: 1. Findings suggest Charcot joint. Findings are similar to the prior exam.. Chronic osteomyelitis in the differential diagnosis. No new destructive changes relative to the prior exam. 2. Findings suggest chronic fractures involving the base of the first metatarsal and the most medial cuneiform bone.
[2020-12-17] MEDS: SODIUM CHLORIDE 0.9% 1,000 ML IV SCH ×2 (11:58→21:58)
[2020-12-17 12:19] LABS: Basophils % (A) 0 %; Eosinophils # (A) 0.3 k/uL (0-0.7); Eosinophils % (A) 4 %; HCT 44.5 % (39.0-53.0); HGB 14.9 gm/dL (13.0-17.5); Lymphocytes # (A) 1.4 k/uL (1.0-4.8); Lymphocytes % (A) 21 %; MCH 29.9 pg (25.0-35.0); MCHC 33.5 g/dL (31.0-37.0); MCV 89.2 fL (80.0-100.0); Monocytes # (A) 0.4 k/uL (0-1.0); Monocytes % (A) 6 %; Neutrophils # (A) 4.6 k/uL (1.3-7.7); Neutrophils % (A) 68 %; Platelet Count 141 k/uL (150-450); RBC 4.99 m/uL (4.30-5.90); RDW 13.2 % (11.5-15.5); WBC 6.8 k/uL (3.8-10.6)
[2020-12-17 12:30] LABS: Calcium 9.2 mg/dL (8.4-10.2); Potassium 4.7 mmol/L (3.5-5.1); Total Bilirubin 0.7 mg/dL (0.2-1.3); Total Protein 7.4 g/dL (6.3-8.2)
[2020-12-17] MEDS ORDERED: INSULIN ASPART (NovoLOG) 100 UNIT/ML VIAL SQ SCH ×2 (12:30→17:30)
[2020-12-17 14:16] LABS: Glucose,Whole Blood 208 mg/dL (75-99)
[2020-12-17] MEDS: INSULIN ASPART (NovoLOG) 100 UNIT/ML VIAL SQ SCH ×3 (14:20→23:48)
--- NOTE | 2020-12-17 14:21 | P.HPIM ---
History of Present Illness H&P Date: 12/17/20 Chief Complaint: Worsening bilateral dm ulcers This is 70-year-old gentleman with past medical history of diabetes mellitus II, neuropathy , bilateral foot/toe debridements,Charcot feet,hyperlipidemia, hypertension, former nicotine dependence, recently admitted with community- acquired bilateral pneumonia, presented initially to PCPs office, referred to the ER with worsening diabetic foot ulcers. Patient has diabetic neuropathy with no sensation in bilateral feet or hands. Patient has not been taken off his shoes or socks every night to check his feet. Reports no fevers at home. Niece discovered worsening ulcers on bilateral feet-patient reported he took a boiling hot bath. Afebrile, normal WBC. Lactic acid 1.4. Unremarkable hematology with the exception of platelets 141, sodium 136 potassium 4.7. BUN 22, creatinine 1.64, glucose 196, mildly elevated alk phos 153. Coronavirus not detected. Repeat x-ray reported charcot joint, similar to prior exam, chronic osteomyelitis, with no new destructive changes, chronic fractures involving the base of the first metatarsal and the most medial cuneiform bone. Review of Systems ROS Statement: Those systems with pertinent positive or pertinent negative responses have been documented in the HPI. ROS Other: All systems not noted in ROS Statement are negative. Past Medical History Past Medical History: Diabetes Mellitus, Hyperlipidemia, Hypertension, Skin Disorder Additional Past Medical History / Comment(s): IDDM type II, neuropathy bilateral hands/feet, bilateral charcot feet/past bilateral foot/toe wounds History of Any Multi-Drug Resistant Organisms: None Reported Past Surgical History: Tonsillectomy Additional Past Surgical History / Comment(s): PICC line, bilateral foot/toe debridements Past Anesthesia/Blood Transfusion Reactions: No Reported Reaction Past Psychological History: No Psychological Hx Reported Smoking Status: Former smoker - Past Family History Father Family Medical History: Cancer Additional Family Medical History / Comment(s): COLON CANCER Mother Family Medical History: Dementia, Diabetes Mellitus Medications and Allergies Home Medications Medication Instructions Recorded Confirmed Type lisinopriL [Prinivil] 20 mg PO DAILY 03/08/14 12/17/20 History Aspirin 81 mg PO DAILY 03/23/14 12/17/20 History Insulin Glargine,Hum.rec.anlog 60 unit SQ W/SUPPER 03/23/14 12/17/20 History [Lantus Solostar] Simvastatin [Zocor] 40 mg PO DAILY 11/26/20 12/17/20 History Pantoprazole [Protonix] 40 mg PO AC-BRKFST #30 tablet. 11/29/20 12/17/20 Rx Allergies Allergy/AdvReac Type Severity Reaction Status Date / Time codeine Allergy Unknown Swelling Verified 12/17/20 11:10 methylprednisolone sodium Allergy Unknown Swelling Verified 12/17/20 11:10 succinate [From Solu-Medrol] Physical Exam Vitals: Vital Signs Temp Pulse Resp BP Pulse Ox 12/17/20 10:39 98.7 F 82 16 133/84 98 Intake and Output 12/16/20 12/17/20 12/17/20 22:59 06:59 14:59 Other: Weight 133.356 kg PHYSICAL EXAM: VITAL SIGNS: As above GENERAL: Sitting up in bed, no acute distress, calm, pleasant HEENT: Conjunctivae normal. eyes normal. NECK: No JVD. No thyroid enlargement. No LNs CARDIOVASCULAR: S1, S2 regular. No murmur RESPIRATION: Breath sounds diminished in the bases. No rhonchi, crackles or wheezing ABDOMEN: Soft, nontender . No guarding. no masses palpable. No ascites, No hepatosplenomegaly.Bowel sounds heard. LEGS: Charcot feet,Left foot plantar surface 's diabetic foot ulcer, with fat layer exposed, right foot wound edematous, erythematous with great toe, second toe and third toe with sanguinous drainage ,diabetic foot ulcers with fat layer exposed, second toe without nail, positive pulses. foul odor. PSYCHIATRY: Alert and oriented X2-3, mood and affect normal. NERVOUS SYSTEM: Cranial N 2-12 grossly normal. Moves all 4 limbs. Diffuse weakness No focal deficits. Strength and sensation grossly intact.. Skin: Warm and dry, no rash Lymphatic system. No LN neck axilla. Results CBC & Chem 7: 12/17/20 11:45 12/17/20 11:45 Labs: Abnormal Lab Results - Last 24 Hours (Table) 12/17/20 12/17/20 Range/Units 11:45 11:45 Plt Count 141 L (150-450) k/uL Sodium 136 L (137-145) mmol/L BUN 22 H (9-20) mg/dL Creatinine 1.64 H (0.66-1.25) mg/dL Glucose 196 H (74-99) mg/dL Alkaline Phosphatase 153 H (38-126) U/L Assessment and Plan Assessment: Charcot feet, chronic Left foot plantar surface 's Duff grade 3 nonpressure diabetic foot ulcer,with fat layer exposed, acute right foot great toe, second toe and third toe nonpressure diabetic foot ulcers with fat layer exposed. Niece states patient does not take his shoes and socks off every night, and has not been checking his feet every night. Chronic fractures involving right foot base of the first metatarsal and the most medial Cuneiform. Chronic osteomyelitis right foot,suggested per x-ray History of previous bilateral foot, toe debridement Diabetes mellitus type 2, hyperglycemia Chronic kidney disease, stage III Neuropathy History of previous bilateral foot, toe debridement Hypertension Hyperlipidemia Former nicotine dependence Morbid obesity, BMI 41.8 Plan: Continue on current medication regime ,monitoring and symptomatic treatment. Maintain Zosyn, initially considered adding vancomycin in addition to, but currently creatinine 1.64. ID consulted. Bilateral foot wound cultures obtained with anaerobic and aerobic cultures ordered in addition to blood cultures previously ordered. Aquacel silver dressings ordered. Close monitoring of Accu-Cheks with NovoLog sliding scale ordered in addition to her home regimen resumed. Hemoglobin A1c ordered. The impression and plan of care has been dictated as directed. : I performed a history and examination of this patient, discussed the same with the dictator. I agree with the dictator's note ,documented as a scribe. Any additional findings or plans will be noted.
[2020-12-17] MEDS: PANTOPRAZOLE 40 MG/10 ML VIAL IVP SCH (17:15)
[2020-12-17] MEDS: HEPARIN SODIUM,PORCINE 5,000 UNIT/ML 1 ML VIAL SQ SCH ×2 (17:16→21:58)
[2020-12-17 18:33] LABS: Glucose,Whole Blood 325 mg/dL (75-99)
[2020-12-17 20:30] LABS: Hemoglobin A1C 9.3 % (4.0-6.0)
[2020-12-17 20:32] LABS: Glucose,Whole Blood 239 mg/dL (75-99)
[2020-12-17] MEDS: PIPERACILLIN-TAZOBACTAM 3.375 GM in SODIUM CHLORIDE 0.9% 100 ML IVPB SCH (21:57)
[2020-12-17] MEDS: INSULIN DETEMIR (LEVEMIR) 100 UNIT/ML SYR SQ SCH (22:20)
[2020-12-17 22:59] LABS: Glucose,Whole Blood 135 mg/dL (75-99)
[2020-12-18] MEDS: PIPERACILLIN-TAZOBACTAM 3.375 GM in SODIUM CHLORIDE 0.9% 100 ML IVPB SCH ×3 (03:33→19:04)
--- NOTE | 2020-12-18 06:21 | CONS ---
CONSULTATION DATE OF SERVICE: 12/17/2020 REASON FOR CONSULTATION: Right diabetic foot infection. HISTORY OF PRESENT ILLNESS: The patient is a 70-year-old male with a past medical history significant for bilateral Charcot foot. This patient did have a history of diabetic foot ulcer. The patient was taken to his PCP office this morning for evaluation of right lower extremity ulceration apparently. The niece has provided most of the history. The patient usually stays in his shoes all the time and does not take him off routinely. When the patient's shoes and socks were taken off, the patient was noticed to have an ulceration to the right foot and some purulent drainage for which the patient was advised to go to the ER for further management. The patient does have underlying diabetic neuropathy and denies pain to his right foot ulceration. The patient denies having any fever or any chills. No chest pain or shortness of breath. No cough. No abdominal pain. No diarrhea. On presentation to the hospital, the patient was afebrile. The patient did have a normal white count. His creatinine was 1.64. Mora PCR was negative. The patient did have x-rays of the foot which did shows Charcot deformity and no evidence of any bony destruction with some chronic fracture involving the base of the 1st metatarsal and medial cuneiform bone. Infectious Disease has been consulted for management of antibiotic therapy. REVIEW OF SYSTEMS: Positive points have been mentioned in HPI. Rest of systems are negative. PAST MEDICAL HISTORY: Diabetes mellitus, hyperlipidemia, hypertension, diabetic neuropathy, diabetic foot ulcer, Charcot joint. PAST SURGICAL HISTORY: Bilateral foot and toe wound debridement. SOCIAL HISTORY: Remote history of smoking. No drinking or drug use. FAMILY HISTORY: Father with history of colon cancer. Mother with history of dementia and diabetes mellitus. ALLERGIES: METHYLPREDNISOLONE and CODEINE. MEDICATIONS: The patient is currently on Tylenol, Lipitor, heparin, NovoLog, Levemir, Ativan, Narcan, Zofran, Protonix, Zosyn and IV fluid. PHYSICAL EXAMINATION: VITAL SIGNS: Blood pressure 134/77 with a pulse of 67, temperature 97.6, he is 98% on room air. GENERAL DESCRIPTION: Patient is an elderly male lying in bed in no distress. No tachypnea or accessory muscles of respiration use. HEENT: Examination shows no pallor or scleral icterus. Oral mucous membrane is dry. NECK: Trachea central, no thyromegaly. LUNGS: Unlabored breathing, clear to auscultation anteriorly. No wheeze or crackle. HEART: S1-S2, regular rate and rhythm. ABDOMEN: Soft, no tenderness. No guarding or rigidity. EXTREMITIES: No edema of the feet. SKIN: Right foot did have superficial ulceration. No significant slough tissue. Minimal drainage. NEUROLOGICAL: Patient is awake, alert, oriented times three. Mood and affect normal. LABS: Hemoglobin is 14.1, white count 6.8, BUN of 22, creatinine 1.64. Cultures currently pending. DIAGNOSTIC IMPRESSION AND PLAN: Patient with right diabetic foot wound and cellulitis. This patient has underlying Charcot deformity and poor overall hygiene. We will need to cover for which is usually associated with these infections. PLAN: 1. The patient is currently covered with Zosyn which will be continued. 2. Local wound care with dry Aquacel Silver dressing. 3. We will follow on clinical condition and culture to further adjust medication if needed. Thank you for this consultation. Will follow this patient along with you. MMODL / IJN: [id number] /
[2020-12-18 07:02] LABS: Glucose,Whole Blood 62 mg/dL (75-99)
[2020-12-18 07:31] LABS: Glucose,Whole Blood 80 mg/dL (75-99)
[2020-12-18 08:46] LABS: Basophils # (A) 0.03 X 10*3/uL (0.00-0.10); Basophils % (A) 0.4 %; Eosinophils # (A) 0.33 X 10*3/uL (0.04-0.35); Eosinophils % (A) 4.8 %; HCT 38.6 % (39.6-50.0); HGB 12.5 g/dL (13.0-17.0); Lymphocytes # (A) 1.59 X 10*3/uL (0.90-5.00); Lymphocytes % (A) 23.1 %; MCH 29.6 pg (27.0-32.0); MCHC 32.4 g/dL (32.0-37.0); MCV 91.5 fL (80.0-97.0); Monocytes % (A) 8.7 %; Neutrophils % (A) 62.7 %; Platelet Count 157 X 10*3/uL (140-440); RBC 4.22 X 10*6/uL (4.40-5.60); RDW 12.8 % (11.5-14.5); WBC 6.87 X 10*3/uL (4.50-10.00)
[2020-12-18 09:23] LABS: African American GFR (CKD) 40.8 (60.0-200.0); Anion Gap 8.3 mmol/L (4.00-12.00); BUN/Creat Ratio 11.05 Ratio (12.00-20.00); Calcium 8.5 mg/dL (8.7-10.3); Carbon Dioxide 23.7 mmol/L (21.6-31.8); Non-African American GFR(CKD) 35.2 (60.0-200.0); Potassium 3.8 mmol/L (3.5-5.5)
[2020-12-18] MEDS: PANTOPRAZOLE 40 MG/10 ML VIAL IVP SCH (09:42)
[2020-12-18] MEDS: INSULIN ASPART (NovoLOG) 100 UNIT/ML VIAL SQ SCH ×4 (09:43→21:42)
[2020-12-18] MEDS: ATORVASTATIN 20 MG TAB PO SCH (09:43)
[2020-12-18 12:00] LABS: Glucose,Whole Blood 197 mg/dL (75-99)
[2020-12-18 12:39] VITALS: BMI 43.4
--- NOTE | 2020-12-18 15:40 | P.PN ---
Subjective Progress Note Date: 12/18/20 This is 70-year-old gentleman with past medical history of diabetes mellitus II, neuropathy , bilateral foot/toe debridements,Charcot feet,hyperlipidemia, hypertension, former nicotine dependence, recently admitted with community- acquired bilateral pneumonia, presented initially to PCPs office, referred to the ER with worsening diabetic foot ulcers. Patient has diabetic neuropathy with no sensation in bilateral feet or hands. Patient has not been taken off his shoes or socks every night to check his feet. Reports no fevers at home. Niece discovered worsening ulcers on bilateral feet-patient reported he took a boiling hot bath. Afebrile, normal WBC. Lactic acid 1.4. Unremarkable hematology with the exception of platelets 141, sodium 136 potassium 4.7. BUN 22, creatinine 1.64, glucose 196, mildly elevated alk phos 153. Coronavirus not detected. Repeat x-ray reported charcot joint, similar to prior exam, chronic osteomyelitis, with no new destructive changes, chronic fractures involving the base of the first metatarsal and the most medial cuneiform bone. 12/18/2020 maintained on IV antibiotics as per infectious disease. Creatinine 1.9. Wound cultures reporting gram-negative bacilli. Wound care with Aquacel silver. Feeling better. Afebrile.VSS, maintaining O2 sats in the 90s on room. Denies chest pain, palpitations or increasing shortness of breath. Denies abdominal pain, nausea or vomiting or diarrhea. Patient has diabetic neuropathy, denies pain of affected extremities. Objective - Vital Signs Vital signs: Vital Signs Temp 97.9 F 12/18/20 07:00 Pulse 80 12/18/20 07:00 Resp 16 12/18/20 07:00 BP 131/68 12/18/20 07:00 Pulse Ox 94 L 12/18/20 07:00 Intake & Output 12/17/20 12/18/20 12/18/20 18:59 06:59 18:59 Intake Total 250 Balance 250 Weight 133.356 kg Intake: Oral 250 Other: # Voids 2 - Exam PHYSICAL EXAM: VITAL SIGNS: As above GENERAL: Sitting up in chair, no acute distress, calm, pleasant,NAD HEENT: Conjunctivae normal. eyes normal. NECK: No JVD. No thyroid enlargement. CARDIOVASCULAR: S1, S2 regular. No murmur RESPIRATION: Breath sounds diminished in the bases. No rhonchi, crackles or wheezing ABDOMEN: Soft, nontender . No guarding. no masses palpable. Positive Bowel sounds. LEGS: Charcot feet,Left foot plantar surface 's diabetic foot ulcer, with fat layer exposed, right foot wound less edematous, improving erythematous with great toe, second toe without nail and third toe with a darkened fluctuating blister intact, less sanguinous drainage ,diabetic foot ulcers with fat layer exposed, positive pulses. PSYCHIATRY: Alert and oriented X2-3, mood and affect normal. NERVOUS SYSTEM: Cranial N 2-12 grossly normal. Moves all 4 limbs. Diffuse weakness No focal deficits. Strength and sensation grossly intact.. Skin: Warm and dry, no rash - Labs CBC & Chem 7: 12/18/20 05:55 12/18/20 05:55 Labs: Abnormal Lab Results - Last 24 Hours (Table) 12/17/20 12/17/20 12/17/20 Range/Units 11:45 11:45 11:45 RBC (4.40-5.60) X 10*6/uL Hgb (13.0-17.0) g/dL Hct (39.6-50.0) % Plt Count 141 L (150-450) k/uL MPV (9.5-12.2) fL Sodium 136 L (137-145) mmol/L BUN 22 H (9-20) mg/dL Creatinine 1.64 H (0.66-1.25) mg/dL Est GFR (CKD-EPI)AfAm (60.0-200.0) Est GFR (CKD-EPI)NonAf (60.0-200.0) BUN/Creatinine Ratio (12.00-20.00) Ratio Glucose 196 H (74-99) mg/dL POC Glucose (mg/dL) (75-99) mg/dL Hemoglobin A1c 9.3 H (4.0-6.0) % Calcium (8.7-10.3) mg/dL Alkaline Phosphatase 153 H (38-126) U/L 12/17/20 12/17/20 12/17/20 Range/Units 14:14 18:32 20:31 RBC (4.40-5.60) X 10*6/uL Hgb (13.0-17.0) g/dL Hct (39.6-50.0) % Plt Count (150-450) k/uL MPV (9.5-12.2) fL Sodium (137-145) mmol/L BUN (9-20) mg/dL Creatinine (0.66-1.25) mg/dL Est GFR (CKD-EPI)AfAm (60.0-200.0) Est GFR (CKD-EPI)NonAf (60.0-200.0) BUN/Creatinine Ratio (12.00-20.00) Ratio Glucose (74-99) mg/dL POC Glucose (mg/dL) 208 H 325 H 239 H (75-99) mg/dL Hemoglobin A1c (4.0-6.0) % Calcium (8.7-10.3) mg/dL Alkaline Phosphatase (38-126) U/L 12/17/20 12/18/20 12/18/20 Range/Units 22:57 05:55 05:55 RBC 4.22 L (4.40-5.60) X 10*6/uL Hgb 12.5 L (13.0-17.0) g/dL Hct 38.6 L (39.6-50.0) % Plt Count (150-450) k/uL MPV 13.0 H (9.5-12.2) fL Sodium (137-145) mmol/L BUN (9-20) mg/dL Creatinine 1.9 H (0.66-1.25) mg/dL Est GFR (CKD-EPI)AfAm 40.8 L (60.0-200.0) Est GFR (CKD-EPI)NonAf 35.2 L (60.0-200.0) BUN/Creatinine Ratio 11.05 L (12.00-20.00) Ratio Glucose (74-99) mg/dL POC Glucose (mg/dL) 135 H (75-99) mg/dL Hemoglobin A1c (4.0-6.0) % Calcium 8.5 L (8.7-10.3) mg/dL Alkaline Phosphatase (38-126) U/L 12/18/20 Range/Units 07:00 RBC (4.40-5.60) X 10*6/uL Hgb (13.0-17.0) g/dL Hct (39.6-50.0) % Plt Count (150-450) k/uL MPV (9.5-12.2) fL Sodium (137-145) mmol/L BUN (9-20) mg/dL Creatinine (0.66-1.25) mg/dL Est GFR (CKD-EPI)AfAm (60.0-200.0) Est GFR (CKD-EPI)NonAf (60.0-200.0) BUN/Creatinine Ratio (12.00-20.00) Ratio Glucose (74-99) mg/dL POC Glucose (mg/dL) 62 L (75-99) mg/dL Hemoglobin A1c (4.0-6.0) % Calcium (8.7-10.3) mg/dL Alkaline Phosphatase (38-126) U/L Microbiology - Last 24 Hours (Table) 12/17/20 12:53 Gram Stain - Preliminary Foot - Right Wound Culture - Preliminary Gram Neg Bacilli 12/17/20 12:53 Gram Stain - Preliminary Foot - Left Wound Culture - Preliminary Assessment and Plan Assessment: Charcot feet, chronic Left foot plantar surface 's Duff grade 3 nonpressure diabetic foot ulcer,with fat layer exposed, acute right foot great toe, second toe and third toe nonpressure diabetic foot ulcers with fat layer exposed. Niece states patient does not take his shoes and socks off every night, and has not been checking his feet every night. Preliminary Wound cultures reporting gr am-negative bacilli Chronic fractures involving right foot base of the first metatarsal and the most medial Cuneiform. Chronic osteomyelitis right foot,suggested per x-ray History of previous bilateral foot, toe debridement Diabetes mellitus type 2, hyperglycemia Chronic kidney disease, stage III Neuropathy History of previous bilateral foot, toe debridement Hypertension Hyperlipidemia Former nicotine dependence Morbid obesity, BMI 41.8 Plan: Continue on current medication regime ,monitoring and symptomatic treatment. Antibiotics as per ID. Close monitoring of renal function with repeat labs ordered for a.m. wound care to include washing affected areas of bilateral lower extremities with Dakin solution 0.25%, prior to application of Aquacel silver dressings. Close monitoring of Accu-Cheks, currently on home med regimen /dose. The impression and plan of care has been dictated as directed. : I performed a history and examination of this patient, discussed the same with the dictator. I agree with the dictator's note ,documented as a scribe. Any additional findings or plans will be noted.
--- NOTE | 2020-12-18 15:48 | PN ---
PROGRESS NOTE DATE OF SERVICE: 12/18/2020. REASON FOR FOLLOWUP: Right diabetic foot ulcer and cellulitis. INTERVAL HISTORY: The patient is currently afebrile. Patient is breathing comfortably. Patient denies having any chest pain, shortness of breath or cough. No abdominal pain or any worsening pain to the right foot to wound area. PHYSICAL EXAMINATION: Blood pressure 131/68 with a pulse of 80, temperature 97.9. He is 94% on room air. General description is an elderly male lying in bed in no distress. RESPIRATORY SYSTEM: Unlabored breathing, clear to auscultation anteriorly. HEART: S1, S2. Regular rate and rhythm. ABDOMEN: Soft, no tenderness. Right toes with some superficial ulceration. No slough tissue. No drainage. LABS: Hemoglobin is 12.5, white count 6.87, creatinine 1.9. Local culture with Gram-negative bacilli. DIAGNOSTIC IMPRESSION AND PLAN: Patient with right foot superficial ulceration and cellulitis. Culture with Gram- negative. Patient is covered with Zosyn. Continue local wound care with dry Aquacel Silver dressing. Discharge antibiotic further based on culture report. MMODL / IJN: [id number] /
[2020-12-18] MEDS: HEPARIN SODIUM,PORCINE 5,000 UNIT/ML 1 ML VIAL SQ SCH ×2 (16:30→21:43)
[2020-12-18 17:24] LABS: Glucose,Whole Blood 146 mg/dL (75-99)
[2020-12-18] MEDS: SODIUM CHLORIDE 0.9% 1,000 ML IV SCH ×2 (17:40→19:07)
[2020-12-18] MEDS: INSULIN DETEMIR (LEVEMIR) 100 UNIT/ML SYR SQ SCH (18:09)
[2020-12-18 20:25] LABS: Glucose,Whole Blood 208 mg/dL (75-99)
[2020-12-19] MEDS: PIPERACILLIN-TAZOBACTAM 3.375 GM in SODIUM CHLORIDE 0.9% 100 ML IVPB SCH ×3 (03:52→19:09)
[2020-12-19 08:02] LABS: Glucose,Whole Blood 71 mg/dL (75-99)
[2020-12-19 09:08] LABS: Basophils # (A) 0.04 X 10*3/uL (0.00-0.10); Basophils % (A) 0.5 %; Eosinophils # (A) 0.36 X 10*3/uL (0.04-0.35); Eosinophils % (A) 4.9 %; HCT 42.7 % (39.6-50.0); HGB 13.6 g/dL (13.0-17.0); Lymphocytes # (A) 2.09 X 10*3/uL (0.90-5.00); Lymphocytes % (A) 28.5 %; MCH 29.1 pg (27.0-32.0); MCHC 31.9 g/dL (32.0-37.0); MCV 91.4 fL (80.0-97.0); Mean Platelet Volume 12.5 fL (9.5-12.2); Monocytes # (A) 0.61 X 10*3/uL (0.20-1.00); Monocytes % (A) 8.3 %; Neutrophils # (A) 4.22 X 10*3/uL (1.80-7.70); Neutrophils % (A) 57.5 %; Platelet Count 166 X 10*3/uL (140-440); RBC 4.67 X 10*6/uL (4.40-5.60); RDW 12.8 % (11.5-14.5); WBC 7.34 X 10*3/uL (4.50-10.00)
[2020-12-19] MEDS: SODIUM HYPOCHLORITE 0.25% 480 ML BOT MISCELLANE SCH (09:11)
[2020-12-19] MEDS: INSULIN ASPART (NovoLOG) 100 UNIT/ML VIAL SQ SCH ×4 (09:11→20:36)
[2020-12-19] MEDS: ATORVASTATIN 20 MG TAB PO SCH (09:11)
[2020-12-19] MEDS: PANTOPRAZOLE 40 MG/10 ML VIAL IVP SCH (09:11)
[2020-12-19 09:29] LABS: African American GFR (CKD) 43.5 (60.0-200.0); Anion Gap 5.1 mmol/L (4.00-12.00); BUN/Creat Ratio 12.22 Ratio (12.00-20.00); Calcium 8.8 mg/dL (8.7-10.3); Carbon Dioxide 28.9 mmol/L (21.6-31.8); Non-African American GFR(CKD) 37.6 (60.0-200.0); Potassium 4.5 mmol/L (3.5-5.5)
--- NOTE | 2020-12-19 11:28 | P.PN ---
Subjective Progress Note Date: 12/19/20 This is 70-year-old gentleman with past medical history of diabetes mellitus II, neuropathy , bilateral foot/toe debridements,Charcot feet,hyperlipidemia, hypertension, former nicotine dependence, recently admitted with community- acquired bilateral pneumonia, presented initially to PCPs office, referred to the ER with worsening diabetic foot ulcers. Patient has diabetic neuropathy with no sensation in bilateral feet or hands. Patient has not been taken off his shoes or socks every night to check his feet. Reports no fevers at home. Niece discovered worsening ulcers on bilateral feet-patient reported he took a boiling hot bath. Afebrile, normal WBC. Lactic acid 1.4. Unremarkable hematology with the exception of platelets 141, sodium 136 potassium 4.7. BUN 22, creatinine 1.64, glucose 196, mildly elevated alk phos 153. Coronavirus not detected. Repeat x-ray reported charcot joint, similar to prior exam, chronic osteomyelitis, with no new destructive changes, chronic fractures involving the base of the first metatarsal and the most medial cuneiform bone. 12/18/2020 maintained on IV antibiotics as per infectious disease. Creatinine 1.9. Wound cultures reporting gram-negative bacilli. Wound care with Aquacel silver. Feeling better. Afebrile.VSS, maintaining O2 sats in the 90s on room. Denies chest pain, palpitations or increasing shortness of breath. Denies abdominal pain, nausea or vomiting or diarrhea. Patient has diabetic neuropathy, denies pain of affected extremities. 12/19/2020 tolerated bedside debridement of bilateral feet well. Maintained on Zosyn .Afebrile, normal WBC. Creatinine 1.8. Denies chest pain, palpitations or shortness of breath. Objective - Vital Signs Vital signs: Vital Signs Temp 97.8 F 12/19/20 07:00 Pulse 84 12/19/20 07:00 Resp 18 12/19/20 07:00 BP 116/67 12/19/20 07:00 Pulse Ox 95 12/19/20 07:00 Intake & Output 12/18/20 12/19/20 12/19/20 18:59 06:59 18:59 Intake Total 710 Balance 710 Weight 133.356 kg Intake: Oral 710 Other: # Voids 4 2 - Exam PHYSICAL EXAM: VITAL SIGNS: As above GENERAL: Sitting up in bed, no acute distress, calm, pleasant,NAD HEENT: Conjunctivae normal. eyes normal. Oral mucosa moist. NECK: No JVD. No thyroid enlargement. CARDIOVASCULAR: S1, S2 regular. No murmur. RESPIRATION: Breath sounds diminished in the bases. No rhonchi, crackles or wheezing ABDOMEN: Soft, nontender . No guarding. no masses palpable. Positive Bowel sounds. LEGS: Charcot feet,Left foot plantar surface 's diabetic foot ulcer, with fat layer exposed, right foot wound less edematous, improving erythematous with great toe, second toe without nail and third toe with a darkened fluctuating blister with serous drainage,diabetic foot ulcers with fat layer exposed, positive pulses., Status post bedside debridement of bilateral feet-please refer to procedure note. PSYCHIATRY: Alert and oriented X2-3, mood and affect normal. NERVOUS SYSTEM: Cranial N 2-12 grossly normal. Moves all 4 limbs. No focal deficits. Strength and sensation grossly intact. Skin: Warm and dry, no rash - Labs CBC & Chem 7: 12/19/20 05:59 12/19/20 05:59 Labs: Abnormal Lab Results - Last 24 Hours (Table) 12/18/20 12/18/20 12/18/20 Range/Units 11:58 17:22 20:23 MCHC (32.0-37.0) g/dL MPV (9.5-12.2) fL Eosinophils # (0.04-0.35) X 10*3/uL Creatinine (0.6-1.5) mg/dL Est GFR (CKD-EPI)AfAm (60.0-200.0) Est GFR (CKD-EPI)NonAf (60.0-200.0) POC Glucose (mg/dL) 197 H 146 H 208 H (75-99) mg/dL 12/19/20 12/19/20 12/19/20 Range/Units 05:59 05:59 08:00 MCHC 31.9 L (32.0-37.0) g/dL MPV 12.5 H (9.5-12.2) fL Eosinophils # 0.36 H (0.04-0.35) X 10*3/uL Creatinine 1.8 H (0.6-1.5) mg/dL Est GFR (CKD-EPI)AfAm 43.5 L (60.0-200.0) Est GFR (CKD-EPI)NonAf 37.6 L (60.0-200.0) POC Glucose (mg/dL) 71 L (75-99) mg/dL Microbiology - Last 24 Hours (Table) 12/17/20 11:45 Blood Culture - Preliminary Blood No Growth after 24 hours 12/17/20 11:55 Blood Culture - Preliminary Blood No Growth after 24 hours 12/17/20 12:53 Gram Stain - Preliminary Foot - Right Wound Culture - Preliminary Gram Neg Bacilli Assessment and Plan Assessment: Charcot feet, chronic Left foot plantar surface 's Duff grade 3 nonpressure diabetic foot ulcer,with fat layer exposed, acute right foot great toe, second toe and third toe nonpressure diabetic foot ulcers with fat layer exposed, status post bilateral foot debridement. Niece states patient does not take his shoes and socks off every night, and has not been checking his feet every night. Preliminary Wound cultures reporting gram-negative bacilli Chronic fractures involving right foot base of the first metatarsal and the most medial Cuneiform. Chronic osteomyelitis right foot,suggested per x-ray History of previous bilateral foot, toe debridement Diabetes mellitus type 2, hyperglycemia Chronic kidney disease, stage III Neuropathy History of previous bilateral foot, toe debridement Hypertension Hyperlipidemia Former nicotine dependence Morbid obesity, BMI 41.8 Plan: Continue on current medication regime ,monitoring and symptomatic treatment. Wound cultures finalizing. Continue antibiotics as per ID. Close monitoring of renal function with repeat labs ordered for a.m.Close monitoring of Accu-Cheks. Discharge planning to [facility] rehab pending finalizing wound cultures, final DC recommendations and clearance from ID. The impression and plan of care has been dictated as directed. : I performed a history and examination of this patient, discussed the same with the dictator. I agree with the dictator's note ,documented as a scribe. Any additional findings or plans will be noted.
[2020-12-19 12:15] LABS: Glucose,Whole Blood 146 mg/dL (75-99)
--- NOTE | 2020-12-19 12:31 | P.PCN ---
Date of Procedure: 12/19/20 Preoperative Diagnosis: conteh Grade III diabetic ulcer left pedal foot, right great toe, right #2 toe, right # 3 toes (non pressure ulcers of other parts of left foot with muscle involvement without necrosis, non pressure ulcers of other parts of right foot into subcutaneous tissues) Postoperative Diagnosis: same Procedure(s) Performed: surgical excisional debridemnt into subcutaneous tissues Surgeon: Yariel Hardin Pathology: none sent Condition: stable Description of Procedure: DESCRIPTION: The full-thickness ulcers , measuring, pre-debridement: Left pedal foot: 0.3 x 0.5 x 0.3 cm Left great toe 3.2 x 4 x 0.2 cm Right #2 toe: 1.0 x 0.9 x 0.2 cm Right #3 toe: 1.2 x 1.3 x 0.3 cm was debrided into the subcutaneous tissues today to remove yellow fibrinous slough and devitalized tissue from the wound. Post debridement measurements: Left pedal foot: 0.5 x 0.7 x 0.4 cm Left great toe 3.4 x 4.2 x 0.3 cm Right #2 toe: 1.3 x 0.9 x 0.3 cm Right #3 toe: 1.4 x 1.5 x 0.5 cm .There is obvious signs of infection today. There are [no] other materials in the wound that he would inhibit healing or promote adjacent tissue breakdown. EXTENT OF NECROTIC TISSUE: Moderate DEGREE OF EPITHELIALIZATION: Moderate CHARACTER OF WOUND AFTER DEBRIDEMINT: [bloody and granular] INSTRUMENTATION: Scalpel BLEEDING: [Minimal and controlled with pressure] ANESTHESIA: None, due to diabetic neuropathy DRESSING: AQUACEL ag, Curlex gauze, Aries wraps Patient tolerated today's procedure well. The patient will be reevaluated for rounds in 1 day
[2020-12-19] MEDS: HEPARIN SODIUM,PORCINE 5,000 UNIT/ML 1 ML VIAL SQ SCH ×2 (13:30→19:10)
[2020-12-19 16:36] LABS: Glucose,Whole Blood 228 mg/dL (75-99)
[2020-12-19] MEDS: SODIUM CHLORIDE 0.9% 1,000 ML IV SCH (17:12)
[2020-12-19] MEDS: INSULIN DETEMIR (LEVEMIR) 100 UNIT/ML SYR SQ SCH (17:53)
--- NOTE | 2020-12-19 19:20 | PN ---
PROGRESS NOTE DATE OF SERVICE: 12/19/2020 REASON FOR FOLLOWUP: Right diabetic foot ulcer and cellulitis. INTERVAL HISTORY: The patient is currently afebrile. The patient is breathing comfortably. The patient denies having any chest pain or shortness of breath or cough. No abdominal pain or any worsening pain to the right foot toes wound. PHYSICAL EXAMINATION: Blood pressure 131/84 with a pulse of 75, temperature 97.8. He is 97% on room air. General description is an elderly male up in the bed in no distress. RESPIRATORY SYSTEM: Unlabored breathing. Clear to auscultation anteriorly. HEART: S1, S2. Regular rate and rhythm. ABDOMEN: Soft. No tenderness. Right foot toes: Second and third did have superficial ulceration. No significant slough tissue. The redness has improved. LABS: Hemoglobin 13.7, white count 7.34, BUN of 22, creatinine 1.8. Culture with E coli resistant to Unasyn. DIAGNOSTIC IMPRESSION AND PLAN: Patient with right diabetic foot wound and cellulitis. Culture with an E coli resistant to Unasyn. Patient is covered with Zosyn; to continue. Local wound care with Aquacel Silver dressing. Finish therapy with oral antibiotics. Continue with supportive care. MMODL / IJN: [id number] /
[2020-12-19 20:36] LABS: Glucose,Whole Blood 198 mg/dL (75-99)
[2020-12-20] MEDS: PIPERACILLIN-TAZOBACTAM 3.375 GM in SODIUM CHLORIDE 0.9% 100 ML IVPB SCH ×2 (06:29→12:36)
[2020-12-20 07:00] LABS: Glucose,Whole Blood 75 mg/dL (75-99)
[2020-12-20] MEDS: SODIUM CHLORIDE 0.9% 1,000 ML IV SCH (07:04)
[2020-12-20] MEDS: INSULIN ASPART (NovoLOG) 100 UNIT/ML VIAL SQ SCH ×2 (07:04→12:36)
[2020-12-20 07:38] LABS: Glucose,Whole Blood 82 mg/dL (75-99)
[2020-12-20] MEDS: ATORVASTATIN 20 MG TAB PO SCH (07:54)
[2020-12-20] MEDS: PANTOPRAZOLE 40 MG/10 ML VIAL IVP SCH (07:55)
[2020-12-20] MEDS: SODIUM HYPOCHLORITE 0.25% 480 ML BOT MISCELLANE SCH (07:55)
[2020-12-20 12:00] LABS: Glucose,Whole Blood 167 mg/dL (75-99)
[2020-12-20] MEDS ORDERED: amLODIPine 5 MG TAB PO SCH (12:00)
--- NOTE | 2020-12-20 12:02 | P.DS ---
Providers Date of admission: 12/17/20 10:55 Expected date of discharge: 12/20/20 Attending physician: Josef Hawkins Consults: 12/17/20 10:56 Consult Physician Stat Consulting Provider: Roya Lay Consult Reason/Comments: Diabetic ulcer Do you want consulting provider notified?: Yes Primary care physician: [facility] Course: Final Diagnoses: Charcot feet, chronic conteh Grade III diabetic ulcer left pedal foot, right great toe, right #2 toe, right # 3 toes (non pressure ulcers of other parts of left foot with muscle involvement without necrosis, non pressure ulcers of other parts of right foot into subcutaneous tissues) Wound cultures reporting E. coli. Status post surgical excisional debridement into subcutaneous tissues of bilateral feet. Chronic fractures involving right foot base of the first metatarsal and the most medial Cuneiform. Chronic osteomyelitis right foot,suggested per x-ray History of previous bilateral foot, toe debridement Diabetes mellitus type 2, hyperglycemia Chronic kidney disease, stage III Neuropathy History of previous bilateral foot, toe debridement Hypertension Hyperlipidemia Former nicotine dependence Morbid obesity, BMI 41.8 Hospital course:This is 70-year-old gentleman with past medical history of diabetes mellitus II, neuropathy , bilateral foot/toe debridements,Charcot feet,hyperlipidemia, hypertension, former nicotine dependence, recently admitted with community-acquired bilateral pneumonia, presented initially to PCPs office, referred to the ER with worsening diabetic foot ulcers. Patient has diabetic neuropathy with no sensation in bilateral feet or hands. Patient has not been taken off his shoes or socks every night to check his feet. Reports no fevers at home. Niece discovered worsening ulcers on bilateral feet-patient reported he took a boiling hot bath. Afebrile, normal WBC. Lactic acid 1.4. Unremarkable hematology with the exception of platelets 141, sodium 136 potassium 4.7. BUN 22, creatinine 1.64, glucose 196, mildly elevated alk phos 153. Coronavirus not detected. Repeat x-ray reported charcot joint, similar to prior exam, chronic osteomyelitis, with no new destructive changes, chronic fractures involving the base of the first metatarsal and the most medial cuneiform bone. 12/18/2020 maintained on IV antibiotics as per infectious disease. Creatinine 1.9. Wound cultures reporting gram-negative bacilli. Wound care with Aquacel silver. Feeling better. Afebrile.VSS, maintaining O2 sats in the 90s on room. Denies chest pain, palpitations or increasing shortness of breath. Denies abdominal pain, nausea or vomiting or diarrhea. Patient has diabetic neuropathy, denies pain of affected extremities. 12/19/2020 tolerated bedside debridement of bilateral feet well. Maintained on Zosyn .Afebrile, normal WBC. Creatinine 1.8. Denies chest pain, palpitations or shortness of breath. Significant clinical improvement. Patient will be discharged to [facility] subacute rehab today pending final DC antibiotics and clearance from ID, in a stable condition with guarded prognosis. The impression and plan of care has been dictated as directed. : I performed a history and examination of this patient, discussed the same with the dictator. I agree with the dictator's note ,documented as a scribe. Any additional findings or plans will be noted. Microbiology 12/17/20 12:53 Foot - Left Gram Stain - Final 12/17/20 12:53 Foot - Left Wound Culture - Final 12/17/20 11:55 Blood Blood Culture - Preliminary No Growth after 48 hours 12/17/20 11:45 Blood Blood Culture - Preliminary No Growth after 48 hours 12/17/20 12:53 Foot - Right Gram Stain - Final 12/17/20 12:53 Foot - Right Wound Culture - Final Escherichia coli Patient Condition at Discharge: Stable Plan - Discharge Summary Discharge Rx Participant: Yes New Discharge Prescriptions: New INSULIN LISPRO (HumaLOG) [humaLOG] 0 unit SQ ACHS #1 vial Acetaminophen Tab [Tylenol] 650 mg PO Q6HR PRN tab PRN Reason: Mild Pain Or Fever > 100.5 amLODIPine [Norvasc] 5 mg PO DAILY tab Continue Insulin Glargine,Hum.rec.anlog [Lantus Solostar] 60 unit SQ W/SUPPER Aspirin 81 mg PO DAILY Simvastatin [Zocor] 40 mg PO DAILY Pantoprazole [Protonix] 40 mg PO AC-BRKFST #30 tablet. Discontinued lisinopriL [Prinivil] 20 mg PO DAILY Discharge Medication List Aspirin 81 mg PO DAILY 03/23/14 [History] Insulin Glargine,Hum.rec.anlog [Lantus Solostar] 60 unit SQ W/SUPPER 03/23/14 [History] Simvastatin [Zocor] 40 mg PO DAILY 11/26/20 [History] Pantoprazole [Protonix] 40 mg PO JOSELYN #30 tablet. 11/29/20 [Rx] Acetaminophen Tab [Tylenol] 650 mg PO Q6HR PRN tab 12/20/20 [Rx] INSULIN LISPRO (HumaLOG) [humaLOG] 0 unit SQ ACHS #1 vial 12/20/20 [Rx] amLODIPine [Norvasc] 5 mg PO DAILY tab 12/20/20 [Rx] Follow up Appointment(s)/Referral(s): Josef Hwakins Jr, DO [Primary Care Provider] - 1-2 days Nydia Butterfield, [NON-STAFF] - As Needed Patient Instructions/Handouts: Diabetic Foot Ulcers (DC) Activity/Diet/Wound Care/Special Instructions: Nydia DC antibiotic as per ID ARIES inhibitor currently on hold secondary to renal function CBC, BMP in 3 days Wound care with Dakin's solution 0.25% wash, followed by Aq Silver daily as prev advised with gauze around each individual affected toe of rigiht foot and gauze dressing to bottom of left foot. Aries wraps to bilateral lower extremit ies.
[2020-12-20] MEDS: HEPARIN SODIUM,PORCINE 5,000 UNIT/ML 1 ML VIAL SQ SCH (12:37)
[2020-12-20 14:18] LABS: African American GFR (CKD) 46.7 (60.0-200.0); Anion Gap 9.4 mmol/L (4.00-12.00); BUN/Creat Ratio 11.18 Ratio (12.00-20.00); Calcium 9.1 mg/dL (8.7-10.3); Carbon Dioxide 25.6 mmol/L (21.6-31.8); Non-African American GFR(CKD) 40.3 (60.0-200.0); Potassium 4.3 mmol/L (3.5-5.5)
[2020-12-20 15:32] VITALS: PULSE 79; TEMP 97.6
--- NOTE | 2020-12-20 15:57 | PN ---
PROGRESS NOTE DATE OF SERVICE: 12/20/2020 REASON FOR FOLLOWUP: Right diabetic foot ulcer and cellulitis. INTERVAL HISTORY: The patient is currently afebrile. The patient is breathing comfortably. Patient denies having any chest pain, shortness of breath or cough. No abdominal pain, pain to the right foot. PHYSICAL EXAMINATION: Blood pressure is 156/83, pulse of 76, temperature 97.8. He is 94% on room air. General description is an elderly male lying in bed in no distress. RESPIRATORY SYSTEM: Unlabored breathing, clear to auscultation anteriorly. HEART: S1, S2. Regular rate and rhythm. ABDOMEN: Soft, no tenderness. Right foot is currently dressed up. No obvious drainage on the dressing. LABS: Creatinine is 1.7. Wound culture with Escherichia coli . DIAGNOSTIC IMPRESSION AND PLAN: Patient with right diabetic foot ulcers involving the toes with superficial ulceration and cellulitis. No evidence of any deep infection. Culture grew Escherichia coli, which is resistant to Augmentin. Plan will be finish therapy with oral Cipro and Flagyl for 10 days. Local care with Aquacel Silver dressing and close outpatient followup. MMODL / IJN: [id number] /
[2020-12-20 16:43] VITALS: BP 160/77; RESP 16
[2020-12-21] MEDS ORDERED: PANTOPRAZOLE 40 MG TABLET PO SCH (07:30)
== END 2020-12-20 16:40 | DRG 623 ==
LOC: EC 10:34 → 1SOBS 10:55 → 6NMEDSUR 17:39
PROVIDERS: ADMIT Family Medicine; ATTEND Family Medicine
PROC: 0JBR0ZZ Excision of Left Foot Subcutaneous Tissue and Fascia, Open Approach (ICD-10-PCS; principal; 2020-12-19)
PROC: 0JBQ0ZZ Excision of Right Foot Subcutaneous Tissue and Fascia, Open Approach (ICD-10-PCS; 2020-12-19)
DX: E11.621 Type 2 diabetes mellitus with foot ulcer (principal); M86.671 Other chronic osteomyelitis, right ankle and foot; Z68.41 Body mass index [BMI] 40.0-44.9, adult; L03.115 Cellulitis of right lower limb; L97.525 Non-pressure chronic ulcer of other part of left foot with muscle involvement without evidence of necrosis; E11.42 Type 2 diabetes mellitus with diabetic polyneuropathy; E11.622 Type 2 diabetes mellitus with other skin ulcer; Z79.4 Long term (current) use of insulin; Z20.822 Contact with and (suspected) exposure to COVID-19; Z79.82 Long term (current) use of aspirin; E78.5 Hyperlipidemia, unspecified; Z87.891 Personal history of nicotine dependence; Z80.0 Family history of malignant neoplasm of digestive organs; Z83.3 Family history of diabetes mellitus; E11.69 Type 2 diabetes mellitus with other specified complication; E11.610 Type 2 diabetes mellitus with diabetic neuropathic arthropathy; E11.65 Type 2 diabetes mellitus with hyperglycemia; E11.22 Type 2 diabetes mellitus with diabetic chronic kidney disease; N18.30 Chronic kidney disease, stage 3 unspecified; E66.01 Morbid (severe) obesity due to excess calories; E11.628 Type 2 diabetes mellitus with other skin complications; L97.519 Non-pressure chronic ulcer of other part of right foot with unspecified severity; Z88.5 Allergy status to narcotic agent; Z88.8 Allergy status to other drugs, medicaments and biological substances; I12.9 Hypertensive chronic kidney disease with stage 1 through stage 4 chronic kidney disease, or unspecified chronic kidney disease; B96.20 Unspecified Escherichia coli [E. coli] as the cause of diseases classified elsewhere; L97.512 Non-pressure chronic ulcer of other part of right foot with fat layer exposed
CPT/HCPCS: 80048; 80053; 83036; 83605; 85025; 87040; 87070; 87077; 87186; 87205; 87635; 99285

== ENCOUNTER 2022-03-24 06:53 | Inpatient (IN) | payer MEDICARE, OTHER ==
[2022-03-24 07:01] LABS: Glucose,Whole Blood 238 mg/dL (70-110)
[2022-03-24] MEDS ORDERED: SODIUM CHLORIDE 0.9% 1,000 ML IV ONE (07:27)
[2022-03-24] MEDS ORDERED: ONDANSETRON 4 MG/2 ML VIAL IVP STA (07:28)
--- NOTE | 2022-03-24 07:44 | ED ---
Altered Mental Status HPI - General Chief Complaint: Altered Mental Status Stated Complaint: poss diabetic issue Time Seen by Provider: 03/24/22 07:15 Source: patient Mode of arrival: ambulatory Limitations: altered mental status - History of Present Illness Initial Comments: 71-year-old male with past medical history of diabetes, hypertension, hyperlip idemia with Charcot joint presents emergency department with altered mental status. The niece came downstairs and states that she saw her uncle sitting at the kitchen table. She asked him a few questions and he was slow to respond. He was extremely diaphoretic and began having dry heaving. This is when EMS was called. Patient is extremely hard of hearing. Does answer questions appropriately. Does have dry heaving on my examined him in the room. Denies any chest pain, shortness of breath or abdominal pain. Admits to feeling nauseated. No recent illnesses - Related Data Home Medications Medication Instructions Recorded Confirmed Insulin Glargine,Hum.rec.anlog 60 unit SQ W/SUPPER 03/23/14 03/24/22 [Lantus Solostar Pen] Atorvastatin [Lipitor] 40 mg PO DAILY 03/24/22 03/24/22 INSULIN LISPRO (HumaLOG) [humaLOG] See Protocol SQ ACHS 03/24/22 03/24/22 lisinopriL [Zestril] 20 mg PO DAILY 03/24/22 03/24/22 Previous Rx's Medication Instructions Recorded Acetaminophen Tab [Tylenol] 650 mg PO Q6HR PRN tab 03/27/22 Amoxic-Pot Clav 875-125Mg 1 tab PO Q12HR 7 Days #14 tab 03/27/22 [Augmentin 875-125] INSULIN ASPART (NovoLOG) [NovoLOG 0 unit SQ ACHS each 03/27/22 (formulary)] Pantoprazole [Protonix] 40 mg PO AC-BRKFST tab 03/27/22 SILVER sulfADIAZINE CREAM 1 applic TOPICAL DAILY each 03/27/22 [Silvadene Cream] Tamsulosin [Flomax] 0.4 mg PO PC-SUPPER cap 03/27/22 Allergies Allergy/AdvReac Type Severity Reaction Status Date / Time codeine Allergy Unknown Swelling Verified 03/24/22 10:10 methylprednisolone sodium Allergy Unknown Swelling Verified 03/24/22 10:10 succinate [From Solu-Medrol] Review of Systems ROS Statement: Those systems with pertinent positive or pertinent negative responses have been documented in the HPI. ROS Other: All systems not noted in ROS Statement are negative. Past Medical History Past Medical History: Diabetes Mellitus, Hyperlipidemia, Hypertension, Skin Disorder Additional Past Medical History / Comment(s): IDDM type II, neuropathy bilateral hands/feet, bilateral charcot feet/past bilateral foot/toe wounds History of Any Multi-Drug Resistant Organisms: None Reported Past Surgical History: Tonsillectomy Additional Past Surgical History / Comment(s): PICC line, bilateral foot/toe d ebridements Past Anesthesia/Blood Transfusion Reactions: No Reported Reaction Past Psychological History: No Psychological Hx Reported Smoking Status: Former smoker Past Alcohol Use History: Unable to Obtain Past Drug Use History: Unable to Obtain - Past Family History Father Family Medical History: Cancer Additional Family Medical History / Comment(s): COLON CANCER Mother Family Medical History: Dementia, Diabetes Mellitus General Exam Limitations: language barrier (hard of hearing), altered mental status Head exam: Present: atraumatic, normocephalic, normal inspection Eye exam: Present: normal appearance, PERRL, EOMI. Absent: scleral icterus, conjunctival injection, periorbital swelling Respiratory exam: Present: normal lung sounds bilaterally. Absent: respiratory distress, wheezes, rales, rhonchi, stridor Cardiovascular Exam: Present: normal rhythm, tachycardia GI/Abdominal exam: Present: soft, normal bowel sounds. Absent: distended, tenderness, guarding, rebound, rigid Extremities exam: Present: other (b/l feet demonstrate rocker bottom deformity. rash ascending left anterior calf. no open wounds) Neurological exam: Present: alert Psychiatric exam: Present: flat affect Skin exam: Present: rash Course Vital Signs 03/24/22 03/24/22 03/24/22 06:55 08:00 11:00 Temperature 95.4 F L Pulse Rate 135 H 122 H 105 H Pulse Rate [ Pulse Oximetery ] Respiratory 20 20 18 Rate Blood Pressure 124/68 137/77 150/80 Blood Pressure [Right Arm] O2 Sat by Pulse 99 96 98 Oximetry 03/24/22 03/24/22 13:20 20:52 Temperature 99.2 F Pulse Rate 111 H Pulse Rate [ 93 Pulse Oximetery ] Respiratory 18 15 Rate Blood Pressure 132/92 Blood Pressure 110/77 [Right Arm] O2 Sat by Pulse 97 96 Oximetry Medical Decision Making - Medical Decision Making Upon arrival patient is placed into room 10. A thorough history and physical exam was performed. Niece is at bedside and helps provide the history. Patient is able to answer all questions appropriately. IV access is established laboratory studies are conducted. White count of 14. Creatinine 1.6. Lactic acid 2.6. Patient was given a liter bolus of normal saline followed by 130 mL/h. X-ray of the patient's feet demonstrates bilateral neuropathic midfoot arthropathy. No acute changes. X-ray of the chest demonstrates congested lumbar vasculature with prominent interstitial lung markings which could be due to incomplete lung expansion however pulmonary edema could be excluded. Gas underneath the left hemidiaphragm. Because of patient's nausea vomiting I did perform a CT of the abdomen and pelvis which demonstrates fecal load of the rectal, sigmoid colon and left hemicolon. Mild wall thickening of the rectum. Mild proctitis can't be excluded. Bilateral perinephric fat stranding. I did initiate the patient on fluids and antibiotics. Patient does have concerning signs of the left lower leg cellulitis. Unasyn ordered. Spoke with Dr. Hardin who agreed to admit the patient. He is currently awaiting a bed on the floor in stable condition - Lab Data Result diagrams: 03/27/22 06:52 03/27/22 06:52 Lab Results 03/24/22 03/24/22 03/24/22 Range/Units 06:59 07:35 07:35 WBC 14.0 H (3.8-10.6) k/uL RBC 5.22 (4.30-5.90) m/uL Hgb 16.0 (13.0-17.5) gm/dL Hct 48.4 (39.0-53.0) % MCV 92.7 (80.0-100.0) fL MCH 30.7 (25.0-35.0) pg MCHC 33.2 (31.0-37.0) g/dL RDW 13.4 (11.5-15.5) % Plt Count 134 L (150-450) k/uL MPV 9.7 Neutrophils % 90 % Lymphocytes % 5 % Monocytes % 3 % Eosinophils % 1 % Basophils % 0 % Neutrophils # 12.6 H (1.3-7.7) k/uL Lymphocytes # 0.7 L (1.0-4.8) k/uL Monocytes # 0.4 (0-1.0) k/uL Eosinophils # 0.2 (0-0.7) k/uL Basophils # 0.0 (0-0.2) k/uL PT 11.3 (9.0-12.0) sec INR 1.0 (<1.2) APTT 23.6 (22.0-30.0) sec Sodium (137-145) mmol/L Potassium (3.5-5.1) mmol/L Chloride (98-107) mmol/L Carbon Dioxide (22-30) mmol/L Anion Gap mmol/L BUN (9-20) mg/dL Creatinine (0.66-1.25) mg/dL Est GFR (CKD-EPI)AfAm (>60 ml/min/1.73 sqM) Est GFR (CKD-EPI)NonAf (>60 ml/min/1.73 sqM) Glucose (74-99) mg/dL POC Glucose (mg/dL) 238 H (70-110) mg/dL POC Glu Cop Examiner ID Misbah Martinez Calcium (8.4-10.2) mg/dL Total Bilirubin (0.2-1.3) mg/dL AST (17-59) U/L ALT (4-49) U/L Alkaline Phosphatase (38-126) U/L Troponin I (0.000-0.034) ng/mL Total Protein (6.3-8.2) g/dL Albumin (3.5-5.0) g/dL Urine Color Urine Appearance (Clear) Urine pH (5.0-8.0) Ur Specific [place] (1.001-1.035) Urine Protein (Negative) Urine Glucose (UA) (Negative) Urine Ketones (Negative) Urine Blood (Negative) Urine Nitrite (Negative) Urine Bilirubin (Negative) Urine Urobilinogen (<2.0) mg/dL Ur Leukocyte Esterase (Negative) Urine Opiates Screen (NotDetected) Ur Oxycodone Screen (NotDetected) Urine Methadone Screen (NotDetected) Ur Propoxyphene Screen (NotDetected) Ur Barbiturates Screen (NotDetected) U Tricyclic Antidepress (NotDetected) Ur Phencyclidine Scrn (NotDetected) Ur Amphetamines Screen (NotDetected) U Methamphetamines Scrn (NotDetected) U Benzodiazepines Scrn (NotDetected) Urine Cocaine Screen (NotDetected) U Marijuana (THC) Screen (NotDetected) Serum Alcohol mg/dL Coronavirus (PCR) (Not Detectd) Influenza Type A RNA (Not Detectd) Influenza Type B (PCR) (Not Detectd) 03/24/22 03/24/22 03/24/22 Range/Units 07:35 07:35 07:35 WBC (3.8-10.6) k/uL RBC (4.30-5.90) m/uL Hgb (13.0-17.5) gm/dL Hct (39.0-53.0) % MCV (80.0-100.0) fL MCH (25.0-35.0) pg MCHC (31.0-37.0) g/dL RDW (11.5-15.5) % Plt Count (150-450) k/uL MPV Neutrophils % % Lymphocytes % % Monocytes % % Eosinophils % % Basophils % % Neutrophils # (1.3-7.7) k/uL Lymphocytes # (1.0-4.8) k/uL Monocytes # (0-1.0) k/uL Eosinophils # (0-0.7) k/uL Basophils # (0-0.2) k/uL PT (9.0-12.0) sec INR (<1.2) APTT (22.0-30.0) sec Sodium 137 (137-145) mmol/L Potassium 4.3 (3.5-5.1) mmol/L Chloride 100 (98-107) mmol/L Carbon Dioxide 24 (22-30) mmol/L Anion Gap 13 mmol/L BUN 22 H (9-20) mg/dL Creatinine 1.65 H (0.66-1.25) mg/dL Est GFR (CKD-EPI)AfAm 48 (>60 ml/min/1.73 sqM) Est GFR (CKD-EPI)NonAf 42 (>60 ml/min/1.73 sqM) Glucose 246 H (74-99) mg/dL POC Glucose (mg/dL) (70-110) mg/dL POC Glu Cop Examiner ID Calcium 9.1 (8.4-10.2) mg/dL Total Bilirubin 0.9 (0.2-1.3) mg/dL AST 24 (17-59) U/L ALT 20 (4-49) U/L Alkaline Phosphatase 174 H (38-126) U/L Troponin I <0.012 (0.000-0.034) ng/mL Total Protein 7.4 (6.3-8.2) g/dL Albumin 4.1 (3.5-5.0) g/dL Urine Color Yellow Urine Appearance Clear (Clear) Urine pH 6.5 (5.0-8.0) Ur Specific [place] 1.015 (1.001-1.035) Urine Protein Trace H (Negative) Urine Glucose (UA) 3+ H (Negative) Urine Ketones Negative (Negative) Urine Blood Negative (Negative) Urine Nitrite Negative (Negative) Urine Bilirubin Negative (Negative) Urine Urobilinogen <2.0 (<2.0) mg/dL Ur Leukocyte Esterase Negative (Negative) Urine Opiates Screen Not Detected (NotDetected) Ur Oxycodone Screen Not Detected (NotDetected) Urine Methadone Screen Not Detected (NotDetected) Ur Propoxyphene Screen Not Detected (NotDetected) Ur Barbiturates Screen Not Detected (NotDetected) U Tricyclic Antidepress Not Detected (NotDetected) Ur Phencyclidine Scrn Not Detected (NotDetected) Ur Amphetamines Screen Not Detected (NotDetected) U Methamphetamines Scrn Not Detected (NotDetected) U Benzodiazepines Scrn Not Detected (NotDetected) Urine Cocaine Screen Not Detected (NotDetected) U Marijuana (THC) Screen Not Detected (NotDetected) Serum Alcohol <10 mg/dL Coronavirus (PCR) (Not Detectd) Influenza Type A RNA (Not Detectd) Influenza Type B (PCR) (Not Detectd) 03/24/22 03/24/22 Range/Units 07:35 07:35 WBC (3.8-10.6) k/uL RBC (4.30-5.90) m/uL Hgb (13.0-17.5) gm/dL Hct (39.0-53.0) % MCV (80.0-100.0) fL MCH (25.0-35.0) pg MCHC (31.0-37.0) g/dL RDW (11.5-15.5) % Plt Count (150-450) k/uL MPV Neutrophils % % Lymphocytes % % Monocytes % % Eosinophils % % Basophils % % Neutrophils # (1.3-7.7) k/uL Lymphocytes # (1.0-4.8) k/uL Monocytes # (0-1.0) k/uL Eosinophils # (0-0.7) k/uL Basophils # (0-0.2) k/uL PT (9.0-12.0) sec INR (<1.2) APTT (22.0-30.0) sec Sodium (137-145) mmol/L Potassium (3.5-5.1) mmol/L Chloride (98-107) mmol/L Carbon Dioxide (22-30) mmol/L Anion Gap mmol/L BUN (9-20) mg/dL Creatinine (0.66-1.25) mg/dL Est GFR (CKD-EPI)AfAm (>60 ml/min/1.73 sqM) Est GFR (CKD-EPI)NonAf (>60 ml/min/1.73 sqM) Glucose (74-99) mg/dL POC Glucose (mg/dL) (70-110) mg/dL POC Glu Cop Examiner ID Calcium (8.4-10.2) mg/dL Total Bilirubin (0.2-1.3) mg/dL AST (17-59) U/L ALT (4-49) U/L Alkaline Phosphatase (38-126) U/L Troponin I (0.000-0.034) ng/mL Total Protein (6.3-8.2) g/dL Albumin (3.5-5.0) g/dL Urine Color Urine Appearance (Clear) Urine pH (5.0-8.0) Ur Specific [place] (1.001-1.035) Urine Protein (Negative) Urine Glucose (UA) (Negative) Urine Ketones (Negative) Urine Blood (Negative) Urine Nitrite (Negative) Urine Bilirubin (Negative) Urine Urobilinogen (<2.0) mg/dL Ur Leukocyte Esterase (Negative) Urine Opiates Screen (NotDetected) Ur Oxycodone Screen (NotDetected) Urine Methadone Screen (NotDetected) Ur Propoxyphene Screen (NotDetected) Ur Barbiturates Screen (NotDetected) U Tricyclic Antidepress (NotDetected) Ur Phencyclidine Scrn (NotDetected) Ur Amphetamines Screen (NotDetected) U Methamphetamines Scrn (NotDetected) U Benzodiazepines Scrn (NotDetected) Urine Cocaine Screen (NotDetected) U Marijuana (THC) Screen (NotDetected) Serum Alcohol mg/dL Coronavirus (PCR) Not Detected (Not Detectd) Influenza Type A RNA Not Detected (Not Detectd) Influenza Type B (PCR) Not Detected (Not Detectd) - EKG Data EKG Comments: EKG demonstrates sinus tachycardia with a rate of 119. MO interval 184. QRS 147. QTC of 440. There is a right bundle branch block. No acute ST segment elevations Disposition Clinical Impression: Left leg cellulitis, Tachycardia, Nausea and vomiting Disposition: ADMITTED IP TO THIS HOSP Condition: Stable Is patient prescribed a controlled substance at d/c from ED?: No Time of Disposition: 10:41 Decision to Admit Reason: Admit from EC Decision Date: 03/24/22 Decision Time: 10:41
[2022-03-24 07:46] LABS: Basophils % (A) 0 %; Eosinophils # (A) 0.2 k/uL (0-0.7); Eosinophils % (A) 1 %; HCT 48.4 % (39.0-53.0); Lymphocytes # (A) 0.7 k/uL (1.0-4.8); Lymphocytes % (A) 5 %; MCH 30.7 pg (25.0-35.0); MCHC 33.2 g/dL (31.0-37.0); MCV 92.7 fL (80.0-100.0); Mean Platelet Volume 9.7; Monocytes # (A) 0.4 k/uL (0-1.0); Monocytes % (A) 3 %; Neutrophils # (A) 12.6 k/uL (1.3-7.7); Neutrophils % (A) 90 %; Platelet Count 134 k/uL (150-450); RBC 5.22 m/uL (4.30-5.90); RDW 13.4 % (11.5-15.5)
[2022-03-24 07:54] LABS: Partial Thromboplastin Time 23.6 sec (22.0-30.0); Prothrombin Time 11.3 sec (9.0-12.0)
[2022-03-24 08:09] LABS: ALT 20 U/L (4-49); AST 24 U/L (17-59); African American GFR (CKD) 48 (>60 ml/min/1.73 sqM); Albumin 4.1 g/dL (3.5-5.0); Alcohol <10 mg/dL; Alkaline Phosphatase 174 U/L (38-126); Anion Gap 13 mmol/L; Blood Urea Nitrogen 22 mg/dL (9-20); Calcium 9.1 mg/dL (8.4-10.2); Carbon Dioxide 24 mmol/L (22-30); Chloride 100 mmol/L (98-107); Glucose 246 mg/dL (74-99); Non-African American GFR(CKD) 42 (>60 ml/min/1.73 sqM); Potassium 4.3 mmol/L (3.5-5.1); Sodium 137 mmol/L (137-145); Total Bilirubin 0.9 mg/dL (0.2-1.3); Total Protein 7.4 g/dL (6.3-8.2)
--- NOTE | 2022-03-24 08:31 | XR ---
EXAMINATION TYPE: XR chest 2V DATE OF EXAM: 03/24/2022 COMPARISON: X-ray dated 11/28/2020 HISTORY: Altered mental status TECHNIQUE: Frontal and lateral views of the chest are obtained. FINDINGS: Congested pulmonary vasculature with prominent interstitial lung markings which could be due to incom plete lung expansion however mild pulmonary edema can't be excluded, please correlate clinically. No sizable pleural effusion or pneumothorax. Cardiac size is suboptimally assessed, without gross cardio megaly. Degenerative changes of the thoracic spine. Gas is seen underneath the left hemidiaphragm which could be due to nonspecific marked gaseous distention of the stomach rather than free peritoneal air, plea se correlate clinically. No free air under the right hemidiaphragm. IMPRESSION: As above.
--- NOTE | 2022-03-24 08:37 | XR ---
EXAMINATION TYPE: XR foot complete 3 views bilateral DATE OF EXAM: 03/24/2022 Comparison: Right foot 12/17/2020, left 08/08/2015 Clinical History: 71 year-old male mental status, confusion, history of osteomyelitis b/l feet Findings: Right: Severe mid foot deformity with bony disorganization and subluxations/dislocations and possibly underl tammy chronic fracture deformities. Secondary rocker-bottom foot deformity. No discrete lytic destruct ion is identified. Moderate-sized plantar heel spur. Overall appearance is similar to 12/17/2020. Left: Similar changes on the left leading to rocker-bottom foot deformity. Changes progressed compared to 1 10/08/2014. Hammertoes. There is a 7 mm fine needle or wire fragment within the plantar soft tissues n ear the base of the second toe. Moderate-sized plantar heel spur. Vascular calcifications. No discret e lytic destruction is seen. Impression: 1. 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 Changes progr essed on the left compared to 08/08/2015. The right foot appears relatively similar compared to 2020. Radiographically, no discrete lytic destruction to clearly indicate osteomyelitis at this time. 2. A 7 mm long retained needle or wire fragment within the plantar soft tissues near the base of the left second toe, also unchanged from 2014.
[2022-03-24 09:50] LABS: Appearance,Urine Clear (Clear); Bilirubin,Urine Negative (Negative); Blood,Urine Negative (Negative); Color,Urine Yellow; Glucose,Urine (UA) 3+ (Negative); Ketones,Urine Negative (Negative); Leukocyte Esterase,Urine Negative (Negative); Nitrite,Urine Negative (Negative); PH, Urine 6.5 (5.0-8.0); Protein,Urine Trace (Negative); Specific Gravity,Urine 1.015 (1.001-1.035); Urobilinogen,Urine <2.0 mg/dL (<2.0)
--- NOTE | 2022-03-24 10:06 | CT ---
EXAMINATION TYPE: CT abdomen pelvis wo con DATE OF EXAM: 03/24/2022 COMPARISON: No previous CT scan is available for comparison HISTORY: Abdominal pain CT DLP: 1420.2 mGycm Automated exposure control for dose reduction was used. TECHNIQUE: Helical acquisition of images was performed from the lung bases through the pelvis. FINDINGS: LUNG BASES: Small bilateral basal pulmonary atelectasis. LIVER/GB: No significant abnormality is appreciated. PANCREAS: Atrophic with fatty infiltration. SPLEEN: Scattered tiny splenic calcification likely related to previous granulomatous infection. ADRENALS: No significant abnormality is seen. KIDNEYS: Questionable tiny nonobstructing calculus measuring 1 mm seen at the right pelviureteric diane ction. No other definite radiodense calculi. No hydroureter or hydronephrosis. Severe bilateral perin ephric fat stranding and reactive fluid, nonspecific. Underlying inflammatory or infectious process c annot be excluded. FREE AIR: No free air is visualized RETROPERITONEAL ADENOPATHY: None visualized REPRODUCTIVE ORGANS: No significant abnormality is seen URINARY BLADDER: Markedly distended, please correlate clinically. Neurogenic bladder cannot be exclu ded. PELVIC ADENOPATHY: Enlarged left inguinal lymph nodes with questionable necrotic center measuring up to 15 mm. No other pathologically enlarged lymph nodes. OSSEOUS STRUCTURES: Degenerative changes of the lower thoracic and lumbar spine. BOWEL: Grossly unremarkable stomach, duodenum and small bowel. Fecal loading of the rectum, sigmoid colon and the left hemicolon. No evidence of acute diverticulitis. Mild wall thickening of the rectum , proctitis cannot be excluded. Normal appendix. OTHER: Arterial atherosclerotic calcifications. No sizable ascites. Bilateral fat-containing inguinal hernias. IMPRESSION: Fecal loading of the rectum, sigmoid colon and left hemicolon. Mild wall thickening of the rectum, no nspecific. Mild proctitis can't be excluded, please correlate clinically and with stool analysis resu lts. Bilateral perinephric fat stranding and reactive fluid, nonspecific. Acute inflammatory/infectious pr ocess of the kidneys cannot be excluded. Recommend clinical correlation and further workup if needed. Other findings as described above.
[2022-03-24] MEDS ORDERED: ONDANSETRON 4 MG/2 ML VIAL IVP PRN (10:41)
[2022-03-24] MEDS ORDERED: ACETAMINOPHEN TAB 325 MG TAB PO PRN (10:41)
[2022-03-24] MEDS ORDERED: AMPICILLIN-SULBACTAM 3 GM in SODIUM CHLORIDE 0.9% 100 ML IVPB STA (10:41)
[2022-03-24] MEDS ORDERED: NALOXONE 0.4 MG/ML 1 ML VIAL IV PRN (10:41)
[2022-03-24 10:43] LABS: Amphetamine Screen,Urine Not Detected (NotDetected); Barbiturate Screen,Urine Not Detected (NotDetected); Benzodiazepines Screen,Urine Not Detected (NotDetected); Cocaine Screen,Urine Not Detected (NotDetected); Methadone Screen, Urine Not Detected (NotDetected); Opiate Screen,Urine Not Detected (NotDetected); Oxycodone Screen, Urine Not Detected (NotDetected); Phencyclidine Screen,Urine Not Detected (NotDetected); Tricyclic Antidepressant,Urine Not Detected (NotDetected); Urn Cannabinoid Scrn Not Detected (NotDetected)
[2022-03-24] MEDS: SODIUM CHLORIDE 0.9% 1,000 ML IV SCH ×2 (13:17→21:08)
[2022-03-24 16:39] LABS: Glucose,Whole Blood 219 mg/dL (70-110)
[2022-03-24] MEDS: INSULIN ASPART (NovoLOG) 100 UNIT/ML VIAL SQ SCH ×2 (18:18→21:18)
[2022-03-24] MEDS: PANTOPRAZOLE 40 MG/10 ML VIAL IVP SCH (18:18)
[2022-03-24] MEDS: INSULIN DETEMIR (LEVEMIR) 100 UNIT/ML SYR SQ SCH (18:46)
[2022-03-24 20:58] LABS: Glucose,Whole Blood 224 mg/dL (70-110)
[2022-03-25 07:26] LABS: Glucose,Whole Blood 73 mg/dL (70-110)
[2022-03-25] MEDS: PANTOPRAZOLE 40 MG/10 ML VIAL IVP SCH (07:32)
[2022-03-25] MEDS: SODIUM CHLORIDE 0.9% 1,000 ML IV SCH ×3 (07:34→17:38)
[2022-03-25] MEDS: INSULIN ASPART (NovoLOG) 100 UNIT/ML VIAL SQ SCH ×4 (08:03→20:59)
[2022-03-25] MEDS: ATORVASTATIN 40 MG TAB PO SCH (08:04)
[2022-03-25] MEDS: lisinopriL 20 MG TAB PO SCH (08:04)
[2022-03-25 09:08] LABS: Basophils # (A) 0.01 X 10*3/uL (0.00-0.10); Basophils % (A) 0.1 %; Eosinophils # (A) 0.01 X 10*3/uL (0.04-0.35); Eosinophils % (A) 0.1 %; HCT 40.3 % (39.6-50.0); HGB 12.6 g/dL (13.0-17.0); Immature Grans, Automated 0.4 %; Lymphocytes % (A) 10.1 %; MCH 28.1 pg (27.0-32.0); MCHC 31.3 g/dL (32.0-37.0); MCV 89.8 fL (80.0-97.0); Mean Platelet Volume 12.5 fL (9.5-12.2); Monocytes # (A) 0.62 X 10*3/uL (0.20-1.00); Monocytes % (A) 6.2 %; NRBC Per 100 WBC 0 /100 WBCS (0.0-0.0); Neutrophils # (A) 8.27 X 10*3/uL (1.80-7.70); Neutrophils % (A) 83.1 %; Platelet Count 123 X 10*3/uL (140-440); RBC 4.49 X 10*6/uL (4.40-5.60); WBC 9.95 X 10*3/uL (4.50-10.00)
[2022-03-25 09:19] LABS: African American GFR (CKD) 46.3 (60.0-200.0); Anion Gap 9.3 mmol/L (10.00-18.00); BUN/Creat Ratio 14.24 Ratio (12.00-20.00); Blood Urea Nitrogen 24.2 mg/dL (9.0-27.0); Calcium 7.9 mg/dL (8.7-10.3); Carbon Dioxide 21.7 mmol/L (20.0-27.5); Potassium 4.2 mmol/L (3.5-5.5)
[2022-03-25 11:22] LABS: Glucose,Whole Blood 190 mg/dL (70-110)
[2022-03-25] MEDS: AMPICILLIN-SULBACTAM 3 GM in SODIUM CHLORIDE 0.9% 100 ML IVPB SCH ×2 (15:00→23:51)
[2022-03-25 17:04] LABS: Glucose,Whole Blood 119 mg/dL (70-110)
[2022-03-25] MEDS: INSULIN DETEMIR (LEVEMIR) 100 UNIT/ML SYR SQ SCH (17:37)
--- NOTE | 2022-03-25 19:24 | P.HPIM ---
History of Present Illness H&P Date: 03/24/22 Chief Complaint: Left leg cellulitis, altered mental status, shortness of breath This is a 71-year-old gentleman with past medical history of diabetes mellitus II, neuropathy , bilateral foot/toe debridements,Charcot feet,hyperlipidemia, hypertension, former nicotine dependence, presented to the ER with confusion, fatigue, altered mental status and multiple other medical issues. Per ER report family reported patient became diaphoretic and nauseated with dry heaves, slow to respond and EMS called to transfer patient to ER. Denied chest pain, palpitations or shortness of breath. Denied vomiting or abdominal pain. Lactic acid 2.6, WBC 14, creatinine 1.65, received a 1 L fluid bolus. Chest x-ray reported congested lumbar vasculature with prominent interstitial lung markings possibly due to incomplete lung expansion however pulmonary edema could not be excluded. Gas underneath the left hemidiaphragm. [facility] on 03[facility]17[facility] Carrillo. Right foot x-ray reported no acute changes, bilateral neuropathic midfoot arthropathy. Abdomen and pelvis CT report fecal load of the rectal, sigmoid colon and left hemicolon, mild wall thickening of the rectum,mild proctitis can't be excluded, bilateral perinephric fat stranding, acute inflammatory/infectious process of the kidneys could not be excluded. UA negative, trace protein, negative leukocytes, negative nitrates. EKG reporting sinus tachycardia right bundle branch block. Troponin negative 1. T-max 99.2. Blood sugars elevated. Alk phos 174. Mora virus, influenza type a/type B not detected.left lower leg cellulitis ,blood cultures collected , Unasyn initiated along with IV fluid resuscitation. Review of Systems ROS Statement: Those systems with pertinent positive or pertinent negative responses have been documented in the HPI. ROS Other: All systems not noted in ROS Statement are negative. Past Medical History Past Medical History: Diabetes Mellitus, Hyperlipidemia, Hypertension, Skin Disorder Additional Past Medical History / Comment(s): IDDM type II, neuropathy bilateral hands/feet, bilateral charcot feet/past bilateral foot/toe wounds History of Any Multi-Drug Resistant Organisms: None Reported Past Surgical History: Tonsillectomy Additional Past Surgical History / Comment(s): PICC line, bilateral foot/toe debridements Past Anesthesia/Blood Transfusion Reactions: No Reported Reaction Past Psychological History: No Psychological Hx Reported Smoking Status: Former smoker Past Alcohol Use History: Unable to Obtain Past Drug Use History: Unable to Obtain - Past Family History Father Family Medical History: Cancer Additional Family Medical History / Comment(s): COLON CANCER Mother Family Medical History: Dementia, Diabetes Mellitus Medications and Allergies Home Medications Medication Instructions Recorded Confirmed Type Insulin Glargine,Hum.rec.anlog 60 unit SQ W/SUPPER 03/23/14 03/24/22 History [Lantus Solostar Pen] Atorvastatin [Lipitor] 40 mg PO DAILY 03/24/22 03/24/22 History INSULIN LISPRO (HumaLOG) [humaLOG] See Protocol SQ ACHS 03/24/22 03/24/22 History lisinopriL [Zestril] 20 mg PO DAILY 03/24/22 03/24/22 History Allergies Allergy/AdvReac Type Severity Reaction Status Date / Time codeine Allergy Unknown Swelling Verified 03/24/22 10:10 methylprednisolone sodium Allergy Unknown Swelling Verified 03/24/22 10:10 succinate [From Solu-Medrol] Physical Exam Vitals: Vital Signs Temp Pulse Resp BP Pulse Ox 03/24/22 13:20 111 H 18 132/92 97 03/24/22 11:00 105 H 18 150/80 98 03/24/22 08:00 122 H 20 137/77 96 03/24/22 06:55 95.4 F L 135 H 20 124/68 99 Intake and Output 03/24/22 03/24/22 03/24/22 06:59 14:59 22:59 Output Total 800 Balance -800 Output: Urine 800 Straight 800 Other: Weight 147.418 kg PHYSICAL EXAM: VITAL SIGNS: As above GENERAL: Sitting up in bed, no acute distress, calm, pleasant HEENT: Conjunctivae normal. eyes normal. NECK: No JVD. No thyroid enlargement. No LNs CARDIOVASCULAR: S1, S2 regular. No murmur RESPIRATION: Breath sounds diminished in the bases. No rhonchi, crackles or wheezing ABDOMEN: Soft, nontender . No guarding. no masses palpable. No ascites, No hepatosplenomegaly.Bowel sounds heard. LEGS: Charcot feet,Left foot plantar surface 's diabetic foot ulcer, Grade II. 0.9cm X 0.4 cmX 0.1 cm, fat layer exposed, no tunneling noted. Positive serosanguineous drainage. PSYCHIATRY: Alert and oriented X2-3, mood and affect normal. NERVOUS SYSTEM: Cranial N 2-12 grossly normal. Moves all 4 limbs. Diffuse weakness No focal deficits. Strength and sensation grossly intact.. Skin: Warm and dry, no rash Results CBC & Chem 7: 03/25/22 05:57 03/25/22 05:57 Labs: Abnormal Lab Results - Last 24 Hours (Table) 03/24/22 03/24/22 03/24/22 Range/Units 06:59 07:35 07:35 WBC 14.0 H (3.8-10.6) k/uL Plt Count 134 L (150-450) k/uL Neutrophils # 12.6 H (1.3-7.7) k/uL Lymphocytes # 0.7 L (1.0-4.8) k/uL BUN (9-20) mg/dL Creatinine (0.66-1.25) mg/dL Glucose (74-99) mg/dL POC Glucose (mg/dL) 238 H (70-110) mg/dL Plasma Lactic Acid Prudencio (0.7-2.0) mmol/L Alkaline Phosphatase (38-126) U/L Urine Protein Trace H (Negative) Urine Glucose (UA) 3+ H (Negative) 03/24/22 03/24/22 03/24/22 Range/Units 07:35 11:13 14:24 WBC (3.8-10.6) k/uL Plt Count (150-450) k/uL Neutrophils # (1.3-7.7) k/uL Lymphocytes # (1.0-4.8) k/uL BUN 22 H (9-20) mg/dL Creatinine 1.65 H (0.66-1.25) mg/dL Glucose 246 H (74-99) mg/dL POC Glucose (mg/dL) (70-110) mg/dL Plasma Lactic Acid Prudencio 2.6 H* 3.3 H* (0.7-2.0) mmol/L Alkaline Phosphatase 174 H (38-126) U/L Urine Protein (Negative) Urine Glucose (UA) (Negative) 03/24/22 Range/Units 16:37 WBC (3.8-10.6) k/uL Plt Count (150-450) k/uL Neutrophils # (1.3-7.7) k/uL Lymphocytes # (1.0-4.8) k/uL BUN (9-20) mg/dL Creatinine (0.66-1.25) mg/dL Glucose (74-99) mg/dL POC Glucose (mg/dL) 219 H (70-110) mg/dL Plasma Lactic Acid Prudencio (0.7-2.0) mmol/L Alkaline Phosphatase (38-126) U/L Urine Protein (Negative) Urine Glucose (UA) (Negative) Assessment and Plan Assessment: Sepsis secondary to cellulitis of the left lower extremity, possible UTI though UA neg. Charcot feet, chronic Left foot plantar surface 's Duff grade 2 nonpressure diabetic foot ulcer,with fat layer exposed. Chronic fractures involving right foot base of the first metatarsal and the most medial Cuneiform. Chronic osteomyelitis right foot,suggested per x-ray History of previous bilateral foot, toe debridement Diabetes mellitus type 2, hyperglycemia Chronic kidney disease, stage III Neuropathy History of previous bilateral foot, toe debridement Hypertension Hyperlipidemia Former nicotine dependence Morbid obesity, BMI 41.8 Plan: Continue on current medication regime ,monitoring and symptomatic t reatment. Outpatient PCP reports patient follows in the wound care center as well as in their office regarding diabetic foot ulcer. Wound care with metal honey to bottom of left foot with dry dressing and offloading. Left leg cellulitis to be outlined/Silvadene dressing with Aries wrap. Continue IV antibiotics of Unasyn. Blood cultures in progress. Close monitoring of blood sugars. PPI added for GI prophylaxis. Diet, increase protein, dietary consulted. The impression and plan of care has been dictated as directed. : I performed a history and examination of this patient, discussed the same with the dictator. I agree with the dictator's note ,documented as a scribe. Any additional findings or plans will be noted.
--- NOTE | 2022-03-25 19:36 | P.PN ---
Subjective Progress Note Date: 03/25/22 H&P Date: 03/24/22 Chief Complaint: Left leg cellulitis, altered mental status, shortness of breath This is a 71-year-old gentleman with past medical history of diabetes mellitus II, neuropathy , bilateral foot/toe debridements,Charcot feet,hyperlipidemia, hypertension, former nicotine dependence, presented to the ER with confusion, fatigue, altered mental status and multiple other medical issues. Per ER report family reported patient became diaphoretic and nauseated with dry heaves, slow to respond and EMS called to transfer patient to ER. Denied chest pain, palpitations or shortness of breath. Denied vomiting or abdominal pain. Lactic acid 2.6, WBC 14, creatinine 1.65, received a 1 L fluid bolus. Chest x-ray reported congested lumbar vasculature with prominent interstitial lung markings possibly due to incomplete lung expansion however pulmonary edema could not be excluded. Gas underneath the left hemidiaphragm. Patient recently followed [facility] on 03/17/[address] Carrillo. Right foot x-ray reported no acute changes, bilateral neuropathic midfoot arthropathy. Abdomen and pelvis CT report fecal load of the rectal, sigmoid colon and left hemicolon, mild wall thickening of the rectum,mild proctitis can't be excluded, bilateral perinephric fat stranding, acute inflammatory/infectious process of the kidneys could not be excluded. UA negative, trace protein, negative leukocytes, negative nitrates. EKG reporting sinus tachycardia right bundle branch block. Troponin negative 1. T-max 99.2. Blood sugars elevated. Alk phos 174. Mora virus, influenza type a/type B not detected.left lower leg cellulitis ,blood cultures collected , Unasyn initiated along with IV fluid resuscitation. 03/25/22 significant urinary retention last night with greater than 1000 MLS, Pastor catheter placed. Flomax added to med regimen. Maintained on IV fluid hydration .Continues on Unasyn, Afebrile, WBC has normalized to 9.95, T-max 99.2. Cellulitis improving. BUN 24.2, creatinine 1.7. Blood sugars improving. Sensorium significantly improved. Objective - Vital Signs Vital signs: Vital Signs Temp 98.3 F 03/25/22 14:00 Pulse 76 03/25/22 14:00 Resp 19 03/25/22 14:00 BP 119/64 03/25/22 14:00 Pulse Ox 92 L 03/25/22 14:00 FiO2 Intake & Output 03/25/22 03/25/22 03/26/22 06:59 18:59 06:59 Output Total 1100 925 Balance -1100 -925 Weight 147.418 kg Output: Urine 1100 925 Coude 1100 Other: Voiding Method Indwelling Catheter # Bowel Movements 1 - Exam PHYSICAL EXAM: VITAL SIGNS: As above GENERAL: Sitting up in bed, no acute distress, calm, pleasant HEENT: Conjunctivae normal. eyes normal. NECK: No JVD. No thyroid enlargement. No LNs CARDIOVASCULAR: S1, S2 regular. No murmur RESPIRATION: Breath sounds diminished in the bases. No rhonchi, crackles or wheezing ABDOMEN: Soft, nontender . No guarding. no masses palpable. No ascites, No hepatosplenomegaly.Bowel sounds heard. LEGS: Charcot feet,Left foot plantar dressing clean dry and intact, left lower extremity with decreased redness and edema, further decreased from initial outline. PSYCHIATRY: Alert and oriented X2-3, mood and affect normal. NERVOUS SYSTEM: Cranial N 2-12 grossly normal. Moves all 4 limbs. Diffuse weakness No focal deficits. Strength and sensation grossly intact.. Skin: Warm and dry, no rash - Labs CBC & Chem 7: 03/25/22 05:57 03/25/22 05:57 Labs: Abnormal Lab Results - Last 24 Hours (Table) 03/24/22 03/24/22 03/24/22 Range/Units 19:29 20:56 22:32 Hgb (13.0-17.0) g/dL MCHC (32.0-37.0) g/dL Plt Count (140-440) X 10*3/uL MPV (9.5-12.2) fL Neutrophils # (1.80-7.70) X 10*3/uL Eosinophils # (0.04-0.35) X 10*3/uL Anion Gap (10.00-18.00) mmol/L Creatinine (0.6-1.5) mg/dL Est GFR (CKD-EPI)AfAm (60.0-200.0) Est GFR (CKD-EPI)NonAf (60.0-200.0) POC Glucose (mg/dL) 224 H (70-110) mg/dL Plasma Lactic Acid Prudencio 3.2 H* 2.4 H* (0.7-2.0) mmol/L Calcium (8.7-10.3) mg/dL 03/25/22 03/25/22 03/25/22 Range/Units 05:57 05:57 11:21 Hgb 12.6 L (13.0-17.0) g/dL MCHC 31.3 L (32.0-37.0) g/dL Plt Count 123 L (140-440) X 10*3/uL MPV 12.5 H (9.5-12.2) fL Neutrophils # 8.27 H (1.80-7.70) X 10*3/uL Eosinophils # 0.01 L (0.04-0.35) X 10*3/uL Anion Gap 9.30 L (10.00-18.00) mmol/L Creatinine 1.7 H (0.6-1.5) mg/dL Est GFR (CKD-EPI)AfAm 46.3 L (60.0-200.0) Est GFR (CKD-EPI)NonAf 40.0 L (60.0-200.0) POC Glucose (mg/dL) 190 H (70-110) mg/dL Plasma Lactic Acid Prudencio (0.7-2.0) mmol/L Calcium 7.9 L (8.7-10.3) mg/dL 03/25/22 Range/Units 17:02 Hgb (13.0-17.0) g/dL MCHC (32.0-37.0) g/dL Plt Count (140-440) X 10*3/uL MPV (9.5-12.2) fL Neutrophils # (1.80-7.70) X 10*3/uL Eosinophils # (0.04-0.35) X 10*3/uL Anion Gap (10.00-18.00) mmol/L Creatinine (0.6-1.5) mg/dL Est GFR (CKD-EPI)AfAm (60.0-200.0) Est GFR (CKD-EPI)NonAf (60.0-200.0) POC Glucose (mg/dL) 119 H (70-110) mg/dL Plasma Lactic Acid Prudencio (0.7-2.0) mmol/L Calcium (8.7-10.3) mg/dL Microbiology - Last 24 Hours (Table) 03/24/22 07:35 Blood Culture - Preliminary Blood No Growth after 24 hours 03/24/22 07:35 Blood Culture - Preliminary Blood No Growth after 24 hours Assessment and Plan Assessment: Sepsis secondary to cellulitis of the left lower extremity, possible UTI though UA neg. Lactic acidosis, secondary to the above, resolved with IV fluid hydration Urinary retention, Pastor catheter placed. Acute metabolic encephalopathy secondary to all of the above. Charcot feet, chronic Left foot plantar surface 's Duff grade 2 nonpressure diabetic foot ulcer,with fat layer exposed. Chronic fractures involving right foot base of the first metatarsal and the medial Cuneiform Chronic osteomyelitis right foot,suggested per x-ray History of previous bilateral foot, toe debridement Diabetes mellitus type 2, hyperglycemia Chronic kidney disease, stage III Neuropathy History of previous bilateral foot, toe debridement Hypertension Hyperlipidemia Former nicotine dependence Morbid obesity, BMI 41.8 Plan: Continue on current medication regime ,monitoring and symptomatic treatment. Required Pastor catheter placement for urinary retention, Flomax add ed to med regimen. Urology consulted per PCPs request. Close monitoring of renal function, repeat BMP in a.m. Continue Wound care. Maintain Unasyn. Blood cultures in progress. Close monitoring of blood sugars. The impression and plan of care has been dictated as directed. : I performed a history and examination of this patient, discussed the same with the dictator. I agree with the dictator's note ,documented as a scribe. Any additional findings or plans will be noted.
[2022-03-25 20:42] LABS: Glucose,Whole Blood 208 mg/dL (70-110)
[2022-03-26] MEDS: SODIUM CHLORIDE 0.9% 1,000 ML IV SCH ×3 (01:27→17:27)
[2022-03-26 07:15] LABS: Glucose,Whole Blood 58 mg/dL (70-110)
--- NOTE | 2022-03-26 07:24 | P.GSCN ---
History of Present Illness Consult date: 03/26/22 History of present illness: 8-year-old gentleman in the hospital with altered sensorium. The etiology is indeterminate. He has significant diabetes with lower extremity problems. His foot wounds a. It is thought that he has infection due to his foot ulcerations. The patient went in urine retention upon admission. He has an indwelling catheter. For this reason we're asked see the patient. The patient is interviewed at the bedside. His responses are limited at best. He is aware of where he is date year but he cannot answer my questions significantly. He does not respond to whether he had problems urinating before he came in the hospital. He is not aware of previous urologic evaluation. He was catheterized for a liter of urine Review of Systems ROS unobtainable: due to mental status Past Medical History Past Medical History: Diabetes Mellitus, Hyperlipidemia, Hypertension, Skin Disorder Additional Past Medical History / Comment(s): IDDM type II, neuropathy bilateral hands/feet, bilateral charcot feet/past bilateral foot/toe wounds History of Any Multi-Drug Resistant Organisms: None Reported Past Surgical History: Tonsillectomy Additional Past Surgical History / Comment(s): PICC line, bilateral foot/toe debridements Past Anesthesia/Blood Transfusion Reactions: No Reported Reaction Past Psychological History: No Psychological Hx Reported Smoking Status: Former smoker Past Alcohol Use History: Unable to Obtain Past Drug Use History: Unable to Obtain - Past Family History Father Family Medical History: Cancer Additional Family Medical History / Comment(s): COLON CANCER Mother Family Medical History: Dementia, Diabetes Mellitus Medications and Allergies Home Medications Medication Instructions Recorded Confirmed Type Insulin Glargine,Hum.rec.anlog 60 unit SQ W/SUPPER 03/23/14 03/24/22 History [Lantus Solostar Pen] Atorvastatin [Lipitor] 40 mg PO DAILY 03/24/22 03/24/22 History INSULIN LISPRO (HumaLOG) [humaLOG] See Protocol SQ ACHS 03/24/22 03/24/22 Hist ory lisinopriL [Zestril] 20 mg PO DAILY 03/24/22 03/24/22 History Allergies Allergy/AdvReac Type Severity Reaction Status Date / Time codeine Allergy Unknown Swelling Verified 03/24/22 10:10 methylprednisolone sodium Allergy Unknown Swelling Verified 03/24/22 10:10 succinate [From Solu-Medrol] Surgical - Exam Vital Signs Temp Pulse Resp BP Pulse Ox 95.4 F L 135 H 20 124/68 99 03/24/22 06:55 03/24/22 06:55 03/24/22 06:55 03/24/22 06:55 03/24/22 06:55 - General well developed, well nourished, no distress - Eyes PERRL - ENT no hearing loss - Neck trachea midline - Respiratory normal expansion, normal respiratory effort - Cardiovascular Rhythm: regular - Abdomen Abdomen: soft, non tender - Genitourinary Indwelling catheter. Normal penis and testicles. Incontinent of stool in the bed. - Neurologic normal sensation, confused Results - Labs 03/25/22 05:57 03/25/22 05:57 Abnormal Lab Results - Last 24 Hours (Table) 03/25/22 03/25/22 03/25/22 Range/Units 05:57 05:57 11:21 Hgb 12.6 L (13.0-17.0) g/dL MCHC 31.3 L (32.0-37.0) g/dL Plt Count 123 L (140-440) X 10*3/uL MPV 12.5 H (9.5-12.2) fL Neutrophils # 8.27 H (1.80-7.70) X 10*3/uL Eosinophils # 0.01 L (0.04-0.35) X 10*3/uL Anion Gap 9.30 L (10.00-18.00) mmol/L Creatinine 1.7 H (0.6-1.5) mg/dL Est GFR (CKD-EPI)AfAm 46.3 L (60.0-200.0) Est GFR (CKD-EPI)NonAf 40.0 L (60.0-200.0) POC Glucose (mg/dL) 190 H (70-110) mg/dL Calcium 7.9 L (8.7-10.3) mg/dL 03/25/22 03/25/22 03/26/22 Range/Units 17:02 20:41 07:13 Hgb (13.0-17.0) g/dL MCHC (32.0-37.0) g/dL Plt Count (140-440) X 10*3/uL MPV (9.5-12.2) fL Neutrophils # (1.80-7.70) X 10*3/uL Eosinophils # (0.04-0.35) X 10*3/uL Anion Gap (10.00-18.00) mmol/L Creatinine (0.6-1.5) mg/dL Est GFR (CKD-EPI)AfAm (60.0-200.0) Est GFR (CKD-EPI)NonAf (60.0-200.0) POC Glucose (mg/dL) 119 H 208 H 58 L (70-110) mg/dL Calcium (8.7-10.3) mg/dL Microbiology - Last 24 Hours (Table) 03/24/22 07:35 Blood Culture - Preliminary Blood No Growth after 24 hours 03/24/22 07:35 Blood Culture - Preliminary Blood No Growth after 24 hours Diabetes panel 03/25/22 Range/Units 05:57 Sodium 135 (135-145) mmol/L Potassium 4.2 (3.5-5.5) mmol/L Chloride 104 (96-109) mmol/L Carbon Dioxide 21.7 (20.0-27.5) mmol/L BUN 24.2 (9.0-27.0) mg/dL Creatinine 1.7 H (0.6-1.5) mg/dL Glucose 78 (70-110) mg/dL Calcium 7.9 L (8.7-10.3) mg/dL Calcium panel 03/25/22 Range/Units 05:57 Calcium 7.9 L (8.7-10.3) mg/dL Pituitary panel 03/25/22 Range/Units 05:57 Sodium 135 (135-145) mmol/L Potassium 4.2 (3.5-5.5) mmol/L Chloride 104 (96-109) mmol/L Carbon Dioxide 21.7 (20.0-27.5) mmol/L BUN 24.2 (9.0-27.0) mg/dL Creatinine 1.7 H (0.6-1.5) mg/dL Glucose 78 (70-110) mg/dL Calcium 7.9 L (8.7-10.3) mg/dL Adrenal panel 03/25/22 Range/Units 05:57 Sodium 135 (135-145) mmol/L Potassium 4.2 (3.5-5.5) mmol/L Chloride 104 (96-109) mmol/L Carbon Dioxide 21.7 (20.0-27.5) mmol/L BUN 24.2 (9.0-27.0) mg/dL Creatinine 1.7 H (0.6-1.5) mg/dL Glucose 78 (70-110) mg/dL Calcium 7.9 L (8.7-10.3) mg/dL - Imaging CT scan - abdomen: report reviewed, image reviewed CT scan - pelvis: report reviewed, image reviewed Assessment and Plan Assessment: Impression: Multiple medical illnesses. Altered mentation. Urinary retention. Recommendations. I suspect the urine retention is related to the overall condition that is leading to the altered sensorium. I cannot get any previous urologic evaluation. My recommendation is to leave indwelling cath until his sensorium improves at that point in time the catheter can be removed and he can be given a voiding trial. I will add Flomax to his regimen.
[2022-03-26 07:52] LABS: Glucose,Whole Blood 105 mg/dL (70-110)
[2022-03-26] MEDS: INSULIN ASPART (NovoLOG) 100 UNIT/ML VIAL SQ SCH ×4 (07:56→21:41)
[2022-03-26] MEDS: lisinopriL 20 MG TAB PO SCH (08:01)
[2022-03-26] MEDS: ATORVASTATIN 40 MG TAB PO SCH (08:01)
[2022-03-26] MEDS: AMPICILLIN-SULBACTAM 3 GM in SODIUM CHLORIDE 0.9% 100 ML IVPB SCH ×3 (08:02→23:28)
[2022-03-26] MEDS: PANTOPRAZOLE 40 MG/10 ML VIAL IVP SCH (08:40)
--- NOTE | 2022-03-26 10:06 | P.PN ---
Subjective Progress Note Date: 03/26/22 03/24/22 This is a 71-year-old gentleman with past medical history of diabetes mellitus II, neuropathy , bilateral foot/toe debridements,Charcot feet,hyperlipidemia, hypertension, former nicotine dependence, presented to the ER with confusion, fatigue, altered mental status and multiple other medical issues. Per ER report family reported patient became diaphoretic and nauseated with dry heaves, slow to respond and EMS called to transfer patient to ER. Denied chest pain, palpitations or shortness of breath. Denied vomiting or abdominal pain. Lactic acid 2.6, WBC 14, creatinine 1.65, received a 1 L fluid bolus. Chest x-ray reported congested lumbar vasculature with prominent interstitial lung markings possibly due to incomplete lung expansion however pulmonary edema could not be excluded. Gas underneath the left hemidiaphragm. [facility] Carrillo. Right foot x-ray reported no acute changes, bilateral neuropathic midfoot arthropathy. Abdomen and pelvis CT report fecal load of the rectal, sigmoid colon and left hemicolon, mild wall thickening of the rectum,mild proctitis can't be excluded, bilateral perinephric fat stranding, acute inflammatory/infectious process of the kidneys could not be excluded. UA negative, trace protein, negative leukocytes, negative nitrates. EKG reporting sinus tachycardia right bundle branch block. Troponin negative 1. T-max 99.2. Blood sugars elevated. Alk phos 174. Mora virus, influenza type a/type B not detected.left lower leg cellulitis ,blood cultures collected , Unasyn initiated along with IV fluid resuscitation. 03/25/22 significant urinary retention last night with greater than 1000 MLS, Pastor catheter placed. Flomax added to med regimen. Maintained on IV fluid hydration .Continues on Unasyn, Afebrile, WBC has normalized to 9.95, T-max 99.2. Cellulitis improving. BUN 24.2, creatinine 1.7. Blood sugars improving. Sensorium significantly improved. 03/26/2022: Patient is reevaluated for his sepsis secondary to cellulitis left lower extremity. Also UTI and urinary retention. UA has been negative. He continues to have indwelling Pastor catheter. He has significant diabetes. Today he appears more awake and alert, close to baseline. He is hard of hearing and it is mentally delayed. Vital signs are stable. He is afebrile. What pressure controlled. O2 is excellent on room air. I's and O's show urine output approximately 1200 mL and one bowel movement 2 days ago. Labs are pending. What cultures negative 24+ hours. Allergy and seen him for his urinary retention. Recommending Flomax and continuation of the catheter at this time until ready for discharge and then to try a voiding trial. Objective - Vital Signs Vital signs: Vital Signs Temp 97.8 F 03/26/22 08:00 Pulse 75 03/26/22 08:00 Resp 16 03/26/22 08:00 BP 154/79 03/26/22 08:00 Pulse Ox 98 03/26/22 08:00 FiO2 Intake & Output 03/25/22 03/26/22 03/26/22 18:59 06:59 18:59 Output Total 925 1200 Balance -925 -1200 Output: Urine 925 1200 Other: Voiding Method Indwelling Catheter Indwelling Catheter - Exam GENERAL: Sitting up in bed, no acute distress, calm, pleasant NECK: No JVD. No thyroid enlargement. No lymphadenopathy CARDIOVASCULAR: S1, S2 regular. No murmur RESPIRATION: Breath sounds diminished in the bases. No rhonchi, crackles or wheezing ABDOMEN: Soft, nontender . No guarding. no masses palpable. No ascites, No hepatosplenomegaly.Bowel sounds heard. LEGS: Charcot feet,Left foot plantar dressing clean dry and intact, left lower extremity with decreased redness and edema, further decreased from initial outline. PSYCHIATRY: Alert and oriented X2-3, mood and affect normal. NERVOUS SYSTEM: Cranial N 2-12 grossly normal. Moves all 4 limbs. Diffuse weakness No focal deficits. Strength and sensation grossly intact.. Skin no rash - Labs CBC & Chem 7: 03/25/22 05:57 03/25/22 05:57 Labs: Abnormal Lab Results - Last 24 Hours (Table) 03/25/22 03/25/22 03/25/22 Range/Units 11:21 17:02 20:41 POC Glucose (mg/dL) 190 H 119 H 208 H (70-110) mg/dL 03/26/22 Range/Units 07:13 POC Glucose (mg/dL) 58 L (70-110) mg/dL Microbiology - Last 24 Hours (Table) 03/24/22 07:35 Blood Culture - Preliminary Blood No Growth after 24 hours 03/24/22 07:35 Blood Culture - Preliminary Blood No Growth after 24 hours Assessment and Plan (1) Sepsis Current Visit: Yes Status: Acute Code(s): A41.9 - SEPSIS, UNSPECIFIED ORGANISM SNOMED Code(s): 24517455 (2) Urine retention Current Visit: Yes Status: Acute Code(s): R33.9 - RETENTION OF URINE, UNSPECIFIED SNOMED Code(s): 669565212 (3) CKD (chronic kidney disease) stage 3, GFR 30-59 ml/min Current Visit: Yes Status: Acute Code(s): N18.30 - CHRONIC KIDNEY DISEASE, S TAGE 3 UNSPECIFIED SNOMED Code(s): 746646375 (4) Essential (primary) hypertension Current Visit: Yes Status: Acute Code(s): I10 - ESSENTIAL (PRIMARY) HYPERTENSION SNOMED Code(s): 83632516 (5) Mixed hyperlipidemia Current Visit: Yes Status: Acute Code(s): E78.2 - MIXED HYPERLIPIDEMIA SNOMED Code(s): 505910324 (6) Left leg cellulitis Current Visit: Yes Status: Acute Code(s): L03.116 - CELLULITIS OF LEFT LOWER LIMB SNOMED Code(s): 048049879 (7) Charcot foot due to diabetes mellitus Current Visit: No Status: Acute Code(s): E11.610 - TYPE 2 DIABETES MELLITUS W DIABETIC NEUROPATHIC ARTHROPATHY SNOMED Code(s): 677728344 Plan: Continue on current medication regime , And PT OT for evaluation due to some debility. Continue Pastor catheter this time. Continue Flomax per urology continue Levemir and NovoLog scale continue Unasyn for antibiotic coverage. Continue IV fluids. Plan placement for him. he will be Reevaluated next 24 hours
[2022-03-26 10:48] LABS: African American GFR (CKD) 53.9 (60.0-200.0); Anion Gap 10.4 mmol/L (10.00-18.00); BUN/Creat Ratio 13.6 Ratio (12.00-20.00); Blood Urea Nitrogen 20.4 mg/dL (9.0-27.0); Calcium 7.9 mg/dL (8.7-10.3); Carbon Dioxide 23.6 mmol/L (20.0-27.5); Non-African American GFR(CKD) 46.5 (60.0-200.0); Potassium 4.2 mmol/L (3.5-5.5)
[2022-03-26 12:11] LABS: Glucose,Whole Blood 122 mg/dL (70-110)
[2022-03-26 13:33] VITALS: BMI 47.9
[2022-03-26 16:49] LABS: Glucose,Whole Blood 264 mg/dL (70-110)
[2022-03-26] MEDS: TAMSULOSIN 0.4 MG CAP.ER.24H PO SCH (17:35)
[2022-03-26] MEDS: INSULIN DETEMIR (LEVEMIR) 100 UNIT/ML SYR SQ SCH (17:54)
[2022-03-26 21:30] LABS: Glucose,Whole Blood 191 mg/dL (70-110)
[2022-03-27] MEDS: SODIUM CHLORIDE 0.9% 1,000 ML IV SCH ×2 (02:12→08:35)
[2022-03-27 06:56] LABS: Glucose,Whole Blood 77 mg/dL (70-110)
[2022-03-27] MEDS: INSULIN ASPART (NovoLOG) 100 UNIT/ML VIAL SQ SCH ×3 (07:07→16:36)
[2022-03-27] MEDS ORDERED: PANTOPRAZOLE 40 MG TABLET PO SCH (07:30)
[2022-03-27] MEDS: ATORVASTATIN 40 MG TAB PO SCH (08:34)
[2022-03-27] MEDS: lisinopriL 20 MG TAB PO SCH (08:34)
[2022-03-27] MEDS: AMPICILLIN-SULBACTAM 3 GM in SODIUM CHLORIDE 0.9% 100 ML IVPB SCH ×2 (08:34→15:47)
[2022-03-27 08:46] LABS: Basophils # (A) 0.02 X 10*3/uL (0.00-0.10); Basophils % (A) 0.3 %; Eosinophils # (A) 0.37 X 10*3/uL (0.04-0.35); Eosinophils % (A) 5.8 %; HCT 40.2 % (39.6-50.0); HGB 12.6 g/dL (13.0-17.0); Immature Grans, Automated 0.3 %; Lymphocytes # (A) 1.17 X 10*3/uL (0.90-5.00); Lymphocytes % (A) 18.3 %; MCH 28.1 pg (27.0-32.0); MCHC 31.3 g/dL (32.0-37.0); MCV 89.7 fL (80.0-97.0); Mean Platelet Volume 12.4 fL (9.5-12.2); Monocytes # (A) 0.46 X 10*3/uL (0.20-1.00); Monocytes % (A) 7.2 %; NRBC Per 100 WBC 0 /100 WBCS (0.0-0.0); Neutrophils # (A) 4.35 X 10*3/uL (1.80-7.70); Neutrophils % (A) 68.1 %; Platelet Count 122 X 10*3/uL (140-440); RBC 4.48 X 10*6/uL (4.40-5.60); RDW 12.9 % (11.5-14.5); WBC 6.39 X 10*3/uL (4.50-10.00)
[2022-03-27 11:34] LABS: Glucose,Whole Blood 155 mg/dL (70-110)
[2022-03-27 11:55] LABS: African American GFR (CKD) 58.1 (60.0-200.0); Anion Gap 7.1 mmol/L (10.00-18.00); BUN/Creat Ratio 13.48 Ratio (12.00-20.00); Calcium 8.3 mg/dL (8.7-10.3); Carbon Dioxide 26.1 mmol/L (20.0-27.5); Non-African American GFR(CKD) 50.1 (60.0-200.0)
--- NOTE | 2022-03-27 13:07 | P.DS ---
Providers Date of admission: 03/24/22 10:41 Expected date of discharge: 03/27/22 Attending physician: Yariel Hardin Consults: 03/25/22 19:26 Consult Physician Routine Consulting Provider: Akin Cardona Consult Reason/Comments: urinary retention/ requested by Dr. Hardin Do you want consulting provider notified?: Yes Primary care physician: Josef Hawkins - Discharge Diagnosis(es) (1) Sepsis Current Visit: Yes Status: Acute (2) Urine retention Current Visit: Yes Status: Acute (3) CKD (chronic kidney disease) stage 3, GFR 30-59 ml/min Current Visit: Yes Status: Acute (4) Essential (primary) hypertension Current Visit: Yes Status: Acute (5) Mixed hyperlipidemia Current Visit: Yes Status: Acute (6) Left leg cellulitis Current Visit: Yes Status: Acute (7) Charcot foot due to diabetes mellitus Current Visit: No Status: Acute Hospital Course: 03/24/22 This is a 71-year-old gentleman with past medical history of diabetes mellitus II, neuropathy , bilateral foot/toe debridements,Charcot feet,hyperlipidemia, hypertension, former nicotine dependence, presented to the ER with confusion, fatigue, altered mental status and multiple other medical issues. Per ER report family reported patient became diaphoretic and nauseated with dry heaves, slow to respond and EMS called to transfer patient to ER. Denied chest pain, palpitations or shortness of breath. Denied vomiting or abdominal pain. Lactic acid 2.6, WBC 14, creatinine 1.65, received a 1 L fluid bolus. Chest x-ray reported congested lumbar vasculature with prominent interstitial lung markings possibly due to incomplete lung expansion however pulmonary edema could not be excluded. Gas underneath the left hemidiaphragm. Patient recently [facility] on 03/17/[address] Carrillo. Right foot x-ray reported no acute changes, bilateral neuropathic midfoot arthropathy. Abdomen and pelvis CT report fecal load of the rectal, sigmoid colon and left hemicolon, mild wall thickening of the rectum,mild proctitis can't be excluded, bilateral perinephric fat stranding, acute inflammatory/infectious process of the kidneys could not be excluded. UA negative, trace protein, negative leukocytes, negative nitrates. EKG reporting sinus tachycardia right bundle branch block. Troponin negative 1. T-max 99.2. Blood sugars elevated. Alk phos 174. Mora virus, influenza type a/type B not detected.left lower leg cellulitis ,blood cultures collected , Unasyn initiated along with IV fluid resuscitation. 03/25/22 significant urinary retention last night with greater than 1000 MLS, Thompson catheter placed. Flomax added to med regimen. Maintained on IV fluid hydration .Continues on Unasyn, Afebrile, WBC has normalized to 9.95, T-max 99.2. Cellulitis improving. BUN 24.2, creatinine 1.7. Blood sugars improving. Sensorium significantly improved. 03/26/2022: Patient is reevaluated for his sepsis secondary to cellulitis left lower extremity. Also UTI and urinary retention. UA has been negative. He continues to have indwelling Thompson catheter. He has significant diabetes. Today he appears more awake and alert, close to baseline. He is hard of hearing and it is mentally delayed. Vital signs are stable. He is afebrile. What pressure controlled. O2 is excellent on room air. I's and O's show urine output approximately 1200 mL and one bowel movement 2 days ago. Labs are pending. What cultures negative 24+ hours. Allergy and seen him for his urinary retention. Recommending Flomax and continuation of the catheter at this time until ready for discharge and then to try a voiding trial. 03/27/2022: patient is back to his baseline mentation. THere is muche less redness to his left leg. He is using medihoney at this time to his DM foot ulcer. He has his DM shoes. IVF @ [facility]. He is on flomax for urine retention. He will go to [facility] with thompson. Plan to remove in am and monitor Post void residual and urinary retetnion. He will unrgo rehab and wound care at [facility]. Patient Condition at Discharge: Stable Plan - Discharge Summary Discharge Rx Participant: Yes New Discharge Prescriptions: New Amoxic-Pot Clav 875-125Mg [Augmentin 875-125] 1 tab PO Q12HR 7 Days #14 tab INSULIN ASPART (NovoLOG) [NovoLOG (formulary)] 0 unit SQ ACHS each Acetaminophen Tab [Tylenol] 650 mg PO Q6HR PRN tab PRN Reason: Mild Pain Or Fever > 100.5 Ampicillin-Sulbactam [Unasyn] 3 gm IVPB Q8HR each Tamsulosin [Flomax] 0.4 mg PO PC-SUPPER cap Pantoprazole [Protonix] 40 mg PO AC-BRKFST tab SILVER sulfADIAZINE CREAM [Silvadene Cream] 1 applic TOPICAL DAILY each Continue Insulin Glargine,Hum.rec.anlog [Lantus Solostar Pen] 60 unit SQ W/SUPPER INSULIN LISPRO (HumaLOG) [humaLOG] See Protocol SQ ACHS lisinopriL [Zestril] 20 mg PO DAILY Atorvastatin [Lipitor] 40 mg PO DAILY Discharge Medication List Insulin Glargine,Hum.rec.anlog [Lantus Solostar Pen] 60 unit SQ W/SUPPER 03/23/14 [History] Atorvastatin [Lipitor] 40 mg PO DAILY 03/24/22 [History] INSULIN LISPRO (HumaLOG) [humaLOG] See Protocol SQ ACHS 03/24/22 [History] lisinopriL [Zestril] 20 mg PO DAILY 03/24/22 [History] Acetaminophen Tab [Tylenol] 650 mg PO Q6HR PRN tab 03/27/22 [Rx] Amoxic-Pot Clav 875-125Mg [Augmentin 875-125] 1 tab PO Q12HR 7 Days #14 tab 03/27/22 [Rx] Ampicillin-Sulbactam [Unasyn] 3 gm IVPB Q8HR each 03/27/22 [Rx] INSULIN ASPART (NovoLOG) [NovoLOG (formulary)] 0 unit SQ ACHS each 03/27/22 [Rx] Pantoprazole [Protonix] 40 mg PO AC-BRKFST tab 03/27/22 [Rx] SILVER sulfADIAZINE CREAM [Silvadene Cream] 1 applic TOPICAL DAILY each 03/27/22 [Rx] Tamsulosin [Flomax] 0.4 mg PO PC-SUPPER cap 03/27/22 [Rx] Follow up Appointment(s)/Referral(s): Josef Hawkins Jr, DO [Primary Care Provider] - 1 Week Yariel Hardin MD [STAFF PHYSICIAN] - 3 Days (at rehab ) Patient Instructions/Handouts: Cellulitis (GEN), Diabetic Foot Ulcers (DC) Activity/Diet/Wound Care/Special Instructions: D/C thompson 03/28/22 am for voiding trial. Bladder scan if no void within 6 hours. Check post void residual, straight cath if >400cc Wound care silvadene left leg ankle to knee with kerlix, radha daily. Left heel therahoney gel, 4x4, kerlix daily Discharge Disposition: TRANSFER TO SNF/ECF
[2022-03-27 15:20] VITALS: BP 111/70; PULSE 82; RESP 15; TEMP 97.8
[2022-03-27 16:25] LABS: Glucose,Whole Blood 213 mg/dL (70-110)
[2022-03-27] MEDS: TAMSULOSIN 0.4 MG CAP.ER.24H PO SCH (16:37)
== END 2022-03-27 17:19 | DRG 871 ==
LOC: EC 06:53 → 4SSUR 10:41
PROVIDERS: ADMIT Family Medicine; ATTEND Family Medicine
DX: A41.9 Sepsis, unspecified organism (principal); G93.41 Metabolic encephalopathy; E87.2 Acidosis; L97.422 Non-pressure chronic ulcer of left heel and midfoot with fat layer exposed; L03.116 Cellulitis of left lower limb; M86.671 Other chronic osteomyelitis, right ankle and foot; Z68.42 Body mass index [BMI] 45.0-49.9, adult; N39.0 Urinary tract infection, site not specified; E11.610 Type 2 diabetes mellitus with diabetic neuropathic arthropathy; E11.22 Type 2 diabetes mellitus with diabetic chronic kidney disease; E11.621 Type 2 diabetes mellitus with foot ulcer; E11.69 Type 2 diabetes mellitus with other specified complication; E11.40 Type 2 diabetes mellitus with diabetic neuropathy, unspecified; E11.65 Type 2 diabetes mellitus with hyperglycemia; E66.01 Morbid (severe) obesity due to excess calories; N18.30 Chronic kidney disease, stage 3 unspecified; Z79.4 Long term (current) use of insulin; I12.9 Hypertensive chronic kidney disease with stage 1 through stage 4 chronic kidney disease, or unspecified chronic kidney disease; Z20.822 Contact with and (suspected) exposure to COVID-19; Z28.310 Unvaccinated for COVID-19; E78.2 Mixed hyperlipidemia; M84.674 Pathological fracture in other disease, right foot; R33.9 Retention of urine, unspecified; I45.10 Unspecified right bundle-branch block; K62.89 Other specified diseases of anus and rectum; H91.90 Unspecified hearing loss, unspecified ear; R15.9 Full incontinence of feces; Z79.899 Other long term (current) drug therapy; Z87.891 Personal history of nicotine dependence; Z71.3 Dietary counseling and surveillance; Z88.5 Allergy status to narcotic agent; Z88.8 Allergy status to other drugs, medicaments and biological substances; Z83.3 Family history of diabetes mellitus
CPT/HCPCS: 36415; 71046; 74176; 80048; 80053; 80306; 80320; 81003; 83036; 83605; 84484; 85025; 85610; 85730; 87040; 87502; 87635; 93005; 96361; 96365; 96366; 96375; 99285

== ENCOUNTER → 2022-06-23 | Outpatient (CLI) | payer MEDICARE, OTHER ==
--- NOTE | 2022-06-23 10:59 | US ---
EXAMINATION TYPE: US venous doppler duplex LE RT DATE OF EXAM: 06/23/2022 10:35 AM COMPARISON: NONE CLINICAL HISTORY: 72-year-old male R22.41 LOCALIZED SWELLING, MASS AND LUMP, RIGHT LO. No history of DVT, swollen leg SIDE PERFORMED: Right TECHNIQUE: The lower extremity deep venous system is examined utilizing real time linear array sonog winsome with graded compression, doppler sonography and color-flow sonography. FINDINGS: VESSELS IMAGED: Common Femoral Vein Deep Femoral Vein Greater Saphenous Vein * Femoral Vein Popliteal Vein Small Saphenous Vein * Proximal Calf Veins Posterior tibial veins (* superficial vessels) Right Leg: Negative for DVT IMPRESSION: No evidence for DVT within the right lower extremity. Subcutaneous edema at the calf.
== END | disposition home or self-care (01) ==
LOC: RADUSWWP 10:11
PROVIDERS: ATTEND Family Medicine
DX: R60.0 Localized edema (principal)

== ENCOUNTER → 2022-06-30 | Outpatient (CLI) | payer MEDICARE, OTHER ==
--- NOTE | 2022-06-30 15:50 | US ---
EXAMINATION TYPE: US arterial LE single level DATE OF EXAM: 06/30/2022 2:24 PM CLINICAL HISTORY: R22.41 LOCALIZED SWELLING, MASS AND LUMP, RIGHT LO. Bilateral calf swelling. Histor y of hypertension, diabetes, and hyperlipidemia. Doppler Waveforms: Right: Monophasic to multiphasic Left: Monophasic multiphasic Pulse Volume Recording: Pressure Gradients: Ankle-Brachial Indices: Right: CNO Left: CNO Toe Brachial Indices: Right: 1.11 Left: 0.78 IMPRESSION: Suboptimal study as SIENA values cannot be obtained. Some loss of phasicity is present whic h is nonspecific. Normal TBI values bilaterally.
== END | disposition home or self-care (01) ==
LOC: RADUSWWP 13:26
PROVIDERS: ATTEND Family Medicine
DX: R22.41 Localized swelling, mass and lump, right lower limb (principal)
CPT/HCPCS: 93922

== ENCOUNTER → 2023-01-07 | Outpatient (CLI) | payer MEDICARE, OTHER ==
[2023-01-07 15:36] LABS: Basophils # (A) 0.03 X 10*3/uL (0.00-0.10); Basophils % (A) 0.5 %; Eosinophils # (A) 0.08 X 10*3/uL (0.04-0.35); Eosinophils % (A) 1.4 %; HCT 41.9 % (39.6-50.0); HGB 13.1 g/dL (13.0-17.0); Immature Grans, Automated 0.3 %; Lymphocytes # (A) 1.22 X 10*3/uL (0.90-5.00); Lymphocytes % (A) 20.9 %; MCHC 31.3 g/dL (32.0-37.0); MCV 92.7 fL (80.0-97.0); Mean Platelet Volume 12.4 fL (9.5-12.2); Monocytes # (A) 0.48 X 10*3/uL (0.20-1.00); Monocytes % (A) 8.2 %; NRBC Per 100 WBC 0 /100 WBCS (0.0-0.0); Neutrophils # (A) 4.02 X 10*3/uL (1.80-7.70); Neutrophils % (A) 68.7 %; Platelet Count 152 X 10*3/uL (140-440); RBC 4.52 X 10*6/uL (4.40-5.60); RDW 14.1 % (11.5-14.5); WBC 5.85 X 10*3/uL (4.50-10.00)
[2023-01-07 16:06] LABS: African American GFR (CKD) 70.1 (60.0-200.0); Albumin 3.5 g/dL (3.8-4.9); Albumin/Globulin Ratio 1.06 (1.60-3.17); Anion Gap 10.3 mmol/L (10.00-18.00); BUN/Creat Ratio 17.42 Ratio (12.00-20.00); Blood Urea Nitrogen 20.9 mg/dL (9.0-27.0); Calcium 9.1 mg/dL (8.7-10.3); Carbon Dioxide 27.7 mmol/L (20.0-27.5); Globulin 3.3 g/dL (1.6-3.3); Non-African American GFR(CKD) 60.5 (60.0-200.0); Potassium 4.4 mmol/L (3.5-5.5); Total Bilirubin 0.5 mg/dL (0.30-1.20); Total Protein 6.8 g/dL (6.2-8.2)
== END | disposition home or self-care (01) ==
LOC: LABWHC1 09:16
PROVIDERS: ATTEND Nurse Practitioner Family
DX: Z09 Encounter for follow-up examination after completed treatment for conditions other than malignant neoplasm (principal); E11.610 Type 2 diabetes mellitus with diabetic neuropathic arthropathy; L97.529 Non-pressure chronic ulcer of other part of left foot with unspecified severity; R53.1 Weakness
CPT/HCPCS: 36415; 80053; 83605; 85025